=== PATIENT | female | born 1950 | race Caucasian/White ===

== ENCOUNTER → 2017-10-05 16:33 | Outpatient (CLI) | payer MEDICARE, OTHER, SELFPAY ==
[2017-10-05 16:38] LABS: RBC Urine None Seen (0-5/HPF)
[2017-10-05 16:51] LABS: Appearance Urine UA SL CLOUDY; Bilirubin Urine UA NEGATIVE (NEGATIVE); Color Urine UA YELLOW; Glucose Urine UA NEGATIVE (Normal); Ketones Urine UA NEGATIVE (NEGATIVE); Leukocyte Esterase Urine UA 2+ (NEGATIVE); Nitrite Urine UA Negative (Negative); Occult Blood Urine UA TRACE-LYSED (Negative); Protein Urine UA NEGATIVE (Negative); Specific Gravity Urine UA <=1.005 (1.000-1.035); Urobilinogen Urine UA 0.2 E.U./dL (0.2); pH Urine UA 6.5 (4.5-8.0)
[2017-10-05 16:58] LABS: Bacteria Urine Few (2-10); Culture Indicated Urine Specimen Cultured; WBC Urine 30-100/HPF (0-5/HPF)
== END ==
PROVIDERS: Family Provider Family Medicine; PCP Family Medicine; Visit Provider Family Medicine
DX: R30.0 Dysuria (principal); R50.9 Fever, unspecified
CPT/HCPCS: 81001; 87077; 87086; 87186

== ENCOUNTER → 2017-12-10 11:48 | Outpatient (CLI) | payer MEDICARE, OTHER, SELFPAY ==
--- NOTE | 2017-12-10 | DI.MG.S_ITS ---
BILATERAL DIGITAL SCREENING MAMMOGRAM 3D/2D WITH CAD: 12/10/2017 Comparison is made to exams dated: 06/04/2016 mammogram, 06/04/2015 mammogram, 05/24/2014 mammogram, 04/12/2012 mammogram, 04/10/2011 mammogram, and 04/05/2010 mammogram - [facility]. The tissue of both breasts is heterogeneously dense. This may lower the sensitivity of mammography. Current study was also evaluated with a Computer Aided Detection (CAD) system. There is architectural distortion in the left breast at 1 o'clock posterior depth. No other significant masses, calcifications, or other findings are seen in either breast. IMPRESSION: INCOMPLETE: NEEDS ADDITIONAL IMAGING EVALUATION The architectural distortion in the left breast is indeterminate. Additional views with possible ultrasound are recommended. This exam was interpreted at Station ID: [id number]. NOTE: For mammograms, a report in lay terms will be sent to the patient. Approximately 15% of breast malignancies will not be visualized mammographically. In the management of a palpable breast mass, a negative mammogram must not discourage biopsy of a clinically suspicious lesion. Electronically Signed By: Elinor seaman/chalino:12/10/2017 13:01:17 letter sent: Additional Imaging Needed ACR BI-RADS Category 0: Incomplete 3340F
== END ==
PROVIDERS: Family Provider Family Medicine; PCP Family Medicine; Visit Provider Family Medicine
DX: Z12.31 Encounter for screening mammogram for malignant neoplasm of breast (principal)
CPT/HCPCS: 77063; 77067

== ENCOUNTER → 2018-01-05 13:48 | Outpatient (CLI) | payer MEDICARE, OTHER, SELFPAY ==
--- NOTE | 2018-01-05 13:50 | DI.US.S_ITS ---
LIMITED ULTRASOUND OF LEFT BREAST: 01/05/2018 CLINICAL: Patient returns today to evaluate a density in the left breast. Comparison is made to exams dated: 01/05/2018 mammogram, 12/10/2017 mammogram, 06/04/2016 mammogram, and 06/04/2015 mammogram - [facility]. Real-time ultrasound of the left breast upper outer quadrant was performed on the area of interest. IMPRESSION: NEGATIVE There is no sonographic evidence of malignancy. There is no abnormality seen in the left breast to correspond with the mammography finding. A 1 year screening mammogram is recommended. This exam was interpreted at Station ID: [id number]. Electronically Signed By: Anshul stephenson/chalino:01/05/2018 14:55:27 letter sent: Normal Exam Ultrasound BI-RADS: 1 Negative
--- NOTE | 2018-01-05 13:50 | DI.MG.S_ITS ---
UNILATERAL LEFT DIGITAL DIAGNOSTIC MAMMOGRAM 3D/2D WITH ADDITIONAL VIEWS: 01/05/2018 Comparison is made to exams dated: 12/10/2017 mammogram, 06/04/2016 mammogram, and 06/04/2015 mammogram - [facility]. The tissue of left breast is heterogeneously dense. This may lower the sensitivity of mammography. There is irregular equal density architectural distortion with an indistinct margin in the left breast at 2 o'clock posterior depth. This is less prominent. No other significant masses or calcifications are seen in the breast. IMPRESSION: INCOMPLETE: NEEDS ADDITIONAL IMAGING EVALUATION The irregular equal density architectural distortion in the left breast is indeterminate. An ultrasound is recommended. This exam was interpreted at Station ID: [id number]. NOTE: For mammograms, a report in lay terms will be sent to the patient. Approximately 15% of breast malignancies will not be visualized mammographically. In the management of a palpable breast mass, a negative mammogram must not discourage biopsy of a clinically suspicious lesion. Electronically Signed By: Anshul stephenson/chalino:01/05/2018 14:54:43 letter sent: Need Ultrasound ACR BI-RADS Category 0: Incomplete [id number]
== END ==
PROVIDERS: PCP Family Medicine; Visit Provider Family Medicine
DX: R92.8 Other abnormal and inconclusive findings on diagnostic imaging of breast (principal)
CPT/HCPCS: 76642; 77065; G0279

== ENCOUNTER → 2018-01-29 09:47 | Outpatient (CLI) | payer MEDICARE, OTHER, SELFPAY ==
[2018-01-29 11:15] LABS: Add Manual Diff / Slide Review NO; Basophils Percent Auto 0.9 % (0-2); Eosinophils Percent Auto 2.2 % (2-4); Hematocrit 41.7 % (36-46); Hemoglobin 14.1 g/dL (12.0-16.0); Lymphocytes Percent Auto 23.6 % (25-40); Mean Corpuscular HGB Conc 33.7 % (30-36); Mean Corpuscular Volume 97.8 fL (80-100); Monocytes Percent Auto 6.6 % (3-14); Neutrophils Absolute Auto 3900 /uL (1500-7000); Neutrophils Percent Auto 66.7 % (50-75); Platelet Count 274 X10^3/uL (150-400); Red Blood Cell Count 4.27 X10^6/uL (4.0-5.2); Red Cell Distribution Width 12.7 % (11.6-14.8); White Blood Cell Count 5.9 X10^3/uL (4.5-11.0)
[2018-01-29 11:57] LABS: Alanine Aminotransferase 35 IU/L (9-52); Albumin 5.1 g/dL (3.5-5.0); Albumin Globulin Ratio 1.5 (1.0-2.8); Alkaline Phosphatase 107 U/L (38-126); Aspartate Aminotransferase 28 IU/L (14-36); BUN Creatinine Ratio 21.3 (6-22); Bilirubin Total 0.6 mg/dL (0.2-1.3); Blood Urea Nitrogen 17 mg/dL (7-17); Calcium 10.2 mg/dL (8.4-10.2); Carbon Dioxide 29 mmol/L (22-32); Chloride 103 mmol/L (98-107); Cholesterol 225 mg/dL (140-199); Estimated Glomerular Filt Rate > 60.0 mL/min (>60); Globulin 3.5 g/dL (1.7-4.1); Glucose 105 mg/dL (80-110); HDL Cholesterol 56 mg/dL (40-60); HEMOLYSIS < 15 (0-50); LDL Cholesterol Calculated 135 mg/dL (<100); Potassium 4.7 mmol/L (3.4-5.1); Sodium 144 mmol/L (137-145); Total Protein 8.6 g/dL (6.3-8.2); Triglycerides 168 mg/dL (35-150)
[2018-01-29 12:27] LABS: Thyroid Stimulating Hormone 1.48 uIU/mL (0.47-4.68)
== END ==
PROVIDERS: PCP Family Medicine; Visit Provider Family Medicine
DX: E03.9 Hypothyroidism, unspecified (principal); E78.2 Mixed hyperlipidemia; I10 Essential (primary) hypertension; R94.5 Abnormal results of liver function studies
CPT/HCPCS: 36415; 80053; 80061; 84443; 85025

== ENCOUNTER → 2019-01-13 12:21 | Outpatient (CLI) | payer MEDICARE, OTHER, SELFPAY | PROVIDERS: PCP Family Medicine; Visit Provider Family Medicine | DX: Z78.0 Asymptomatic menopausal state (principal); E07.9 Disorder of thyroid, unspecified | CPT/HCPCS: 77080 ==

== ENCOUNTER → 2019-03-02 10:46 | Outpatient (CLI) | payer MEDICARE, OTHER, SELFPAY ==
[2019-03-02 12:01] LABS: Add Manual Diff / Slide Review NO; Basophils Absolute Auto 100 /uL (0-100); Basophils Percent Auto 1.4 % (0-2); Eosinophils Absolute Auto 300 /uL (0-450); Hematocrit 39.7 % (36-46); Hemoglobin 13.9 g/dL (12.0-16.0); Lymphocytes Absolute Auto 1500 /uL (1100-4500); Lymphocytes Percent Auto 21.9 % (25-40); Mean Corpuscular Hemoglobin 33.7 PG (26-34); Mean Corpuscular Volume 96.4 fL (80-100); Monocytes Absolute Auto 500 /uL (0-900); Monocytes Percent Auto 6.6 % (3-14); Neutrophils Absolute Auto 4500 /uL (1500-7000); Neutrophils Percent Auto 66.1 % (50-75); Platelet Count 268 X10^3/uL (150-400); Red Blood Cell Count 4.12 X10^6/uL (4.0-5.2); Red Cell Distribution Width 12.5 % (11.6-14.8); White Blood Cell Count 6.8 X10^3/uL (4.5-11.0)
[2019-03-02 12:26] LABS: Alanine Aminotransferase 24 IU/L (<35); Albumin Globulin Ratio 1.6 (1.0-2.8); Alkaline Phosphatase 118 U/L (38-126); Aspartate Aminotransferase 25 IU/L (14-36); BUN Creatinine Ratio 17.5 (6-22); Bilirubin Total 0.5 mg/dL (0.2-1.3); Blood Urea Nitrogen 14 mg/dL (7-17); Calcium 10.4 mg/dL (8.4-10.2); Carbon Dioxide 30 mmol/L (22-32); Chloride 103 mmol/L (98-107); Cholesterol 226 mg/dL (140-199); Estimated Glomerular Filt Rate > 60.0 mL/min (>60); Globulin 3.1 g/dL (1.7-4.1); Glucose 100 mg/dL (80-110); HDL Cholesterol 55 mg/dL (40-60); HEMOLYSIS < 15 (0-50); LDL Cholesterol Calculated 114 mg/dL (<100); Potassium 5.2 mmol/L (3.4-5.1); Sodium 141 mmol/L (137-145); Total Protein 8.1 g/dL (6.3-8.2); Triglycerides 285 mg/dL (35-150)
[2019-03-02 12:41] LABS: Thyroid Stimulating Hormone 1.69 uIU/mL (0.47-4.68)
== END ==
PROVIDERS: PCP Family Medicine; Visit Provider Family Medicine
DX: E03.9 Hypothyroidism, unspecified (principal); E78.2 Mixed hyperlipidemia; I10 Essential (primary) hypertension; R94.5 Abnormal results of liver function studies
CPT/HCPCS: 36415; 80053; 80061; 84443; 85025

== ENCOUNTER → 2019-09-07 11:46 | Outpatient (CLI) | payer MEDICARE, OTHER, SELFPAY ==
--- NOTE | 2019-09-07 11:50 | DI.MG.S_ITS ---
BILATERAL DIGITAL SCREENING MAMMOGRAM 3D/2D WITH CAD: 09/07/2019 CLINICAL: Routine screening. Comparison is made to exams dated: 01/05/2018 mammogram, 12/10/2017 mammogram, and 06/04/2016 mammogram - [facility]. The tissue of both breasts is heterogeneously dense. This may lower the sensitivity of mammography. Current study was also evaluated with a Computer Aided Detection (CAD) system. No significant masses, calcifications, or other findings are seen in either breast. There has been no significant interval change. IMPRESSION: NEGATIVE There is no mammographic evidence of malignancy. A 1 year screening mammogram is recommended. This exam was interpreted at Station ID: [id number]. NOTE: For mammograms, a report in lay terms will be sent to the patient. Approximately 15% of breast malignancies will not be visualized mammographically. In the management of a palpable breast mass, a negative mammogram must not discourage biopsy of a clinically suspicious lesion. Electronically Signed By: Elinor seaman/chalino:09/07/2019 13:53:31 letter sent: Normal Exam ACR BI-RADS Category 1: Negative [id number]
== END ==
PROVIDERS: PCP Family Medicine; Referring Provider Family Medicine; Visit Provider Family Medicine
DX: Z12.31 Encounter for screening mammogram for malignant neoplasm of breast (principal)
CPT/HCPCS: 77063; 77067

== ENCOUNTER → 2019-10-14 14:59 | Outpatient (CLI) | payer MEDICARE, OTHER, SELFPAY ==
[2019-10-18 15:36] LABS: Fecal Immunochemical Test Positive (Negative)
== END ==
PROVIDERS: PCP Family Medicine; Referring Provider Family Medicine; Visit Provider Family Medicine
DX: Z12.11 Encounter for screening for malignant neoplasm of colon (principal)
CPT/HCPCS: 82274

== ENCOUNTER → 2019-11-22 08:48 | Outpatient (CLI) | payer MEDICARE, OTHER, SELFPAY ==
[2019-11-23 00:51] LABS: COVID19 Sendout Not Detected (Not Detect)
== END ==
PROVIDERS: PCP Family Medicine; Visit Provider Physician Assistant
DX: Z01.812 Encounter for preprocedural laboratory examination (principal)
CPT/HCPCS: 87635

== ENCOUNTER 2019-11-25 08:31 | Day surgery (SDC) | payer MEDICARE, OTHER, SELFPAY ==
[2019-11-25] MEDS: SODIUM CHLORIDE 0.9% 1,000 ML 200 ML IV (08:59)
[2019-11-25 09:00] VITALS: BP 119/72; PULSE 69; RESP 18; TEMP 36.5; O2SAT 97; BMI 31.4
--- NOTE | 2019-11-25 10:36 | PM.PREOP ---
Pre-operative Note COVID-19 COVID-19 status: Negative Result date/Date tested (Pos, Neg/Pending): 11/22/19 Interval Note History & Physical reviewed/Exam performed by Physician: Yes Changes to H&P: No ASA Class (for procedural sedation): II
--- NOTE | 2019-11-25 10:37 | P.OP.ENDO_ITS ---
Operative Date/Time/Diagnoses Date of procedure: 11/25/19 Time of procedure: 10:37 Pre-op diagnosis: Positive cologuard test Post-op diagnosis: other (No polyps or neoplasms seen.) Procedure & Clinicians Study performed: Colonoscopy Procedural sedation performed by the endoscopy Same procedure as scheduled: Yes Indications: Positive cologuard test Surgeon: Janie Richmond Procedure Notes SCOAP/Timeout: Performed Procedure in detail: The patient was brought to the room and placed in left lateral decubitus position with all bony prominences padded. A time-out was performed and then the patient was given procedural sedation starting with 2 mg of Versed and 100 mcg of fentanyl. Vitals were monitored throughout the procedure and remained stable. Once adequately sedated, the procedure was begun. A rectal exam was performed revealing no abnormalities. The colonoscope was then introduced to the rectum and advanced to the cecum in the usual fashion. The cecum was identified by the appendiceal orifice, the mucosal tri- fold, and the ileocecal valve. The scope was then retracted while rotating side to side and examining each mucosal fold. No polyps or masses were seen. A few small scattered diverticula was seen in the sigmoid colon. At the conclusion of the procedure retroflexion was performed and small grade 1-2 internal hemorrhoids without stigmata of bleeding were seen. The scope was then withdrawn from the rectum the procedure was concluded. The patient tolerated the procedure well and was transferred to the PACU in stable condition. Scope withdrawal time: 10 Sedation minutes: 18 Findings: other findings (No neoplastic lesions, few small scattered diverticula.) Specimen(s): none sent Complications: none Impression: No polyps masses. A few small diverticula were seen scattered throughout the sigmoid colon. Post-procedure Recommendations: Colonscopy in 10 years (If you are healthy enough for colonoscopy at that time) Follow up: as needed Disposition: PACU
[2019-11-25] MEDS: MIDAZOLAM 5 MG/5 ML VIAL IV (10:38)
[2019-11-25] MEDS: fentaNYL 250 MCG/5 ML INJ IV (10:38)
[2019-11-25 11:01] VITALS: BP 120/67; PULSE 71; RESP 11; TEMP 36.6; O2SAT 95
[2019-11-25 11:05] VITALS: PULSE 69; RESP 10; O2SAT 95
[2019-11-25 11:11] VITALS: BP 116/63; PULSE 71; RESP 10; TEMP 36.6; O2SAT 97
[2019-11-25 11:15] VITALS: BP 120/63; PULSE 73; RESP 16; O2SAT 97
== END 2019-11-25 11:30 | disposition home or self-care (01) ==
PROVIDERS: PCP Family Medicine; Referring Provider Family Medicine; Visit Provider Surgery
PROC: 0DJD8ZZ Inspection of Lower Intestinal Tract, Via Natural or Artificial Opening Endoscopic (ICD-10-PCS; CPT 45378; principal; 2019-11-25 08:30)
DX: R19.5 Other fecal abnormalities (principal); E66.9 Obesity, unspecified; Z68.31 Body mass index [BMI] 31.0-31.9, adult; E03.9 Hypothyroidism, unspecified; E78.5 Hyperlipidemia, unspecified; F32.9 Major depressive disorder, single episode, unspecified; F41.9 Anxiety disorder, unspecified; K64.0 First degree hemorrhoids
CPT/HCPCS: 45378; 99152; J2250; J3010

== ENCOUNTER → 2020-03-12 08:25 | Outpatient (CLI) | payer MEDICARE, OTHER, SELFPAY ==
[2020-03-12 09:07] LABS: Alanine Aminotransferase 21 IU/L (<35); Albumin 4.6 g/dL (3.5-5.0); Albumin Globulin Ratio 1.5 (1.0-2.8); Alkaline Phosphatase 102 U/L (38-126); Aspartate Aminotransferase 24 IU/L (14-36); BUN Creatinine Ratio 21.1 (6-22); Bilirubin Total 0.3 mg/dL (0.2-1.3); Blood Urea Nitrogen 16 mg/dL (7-17); Calcium 9.4 mg/dL (8.4-10.2); Carbon Dioxide 32 mmol/L (22-32); Chloride 104 mmol/L (98-107); Cholesterol 211 mg/dL (140-199); Estimated Glomerular Filt Rate > 60.0 mL/min (>60); Globulin 3.1 g/dL (1.7-4.1); Glucose 119 mg/dL (80-110); HDL Cholesterol 60 mg/dL (40-60); HEMOLYSIS < 15 (0-50); LDL Cholesterol Calculated 125 mg/dL (<100); Potassium 4.8 mmol/L (3.4-5.1); Sodium 139 mmol/L (137-145); Total Protein 7.7 g/dL (6.3-8.2); Triglycerides 128 mg/dL (35-150)
[2020-03-12 10:04] LABS: Thyroid Stimulating Hormone 2.34 uIU/mL (0.47-4.68)
== END ==
PROVIDERS: PCP Nurse Practitioner; Referring Provider Nurse Practitioner; Visit Provider Nurse Practitioner
DX: E03.9 Hypothyroidism, unspecified (principal); E78.2 Mixed hyperlipidemia; F32.9 Major depressive disorder, single episode, unspecified; I10 Essential (primary) hypertension; R94.5 Abnormal results of liver function studies; Z79.899 Other long term (current) drug therapy
CPT/HCPCS: 36415; 80053; 80061; 84443

== ENCOUNTER 2020-04-06 11:15 | Outpatient (RCR) | payer MEDICARE, OTHER, SELFPAY ==
--- NOTE | 2020-03-01 15:47 | PT.OIE ---
Current Diagnoses Stiffness of right hip, not elsewhere classified (03/01/20) Stiffness of left hip, not elsewhere classified (03/01/20) Low back pain (03/01/20) Muscle weakness (generalized) (03/01/20) Stress incontinence (female) (male) (03/01/20) Frequency of micturition (03/01/20) Past Medical History (Last Reviewed 01/19/20 @ 13:43 by JANIS Garibay) Chicken pox (~1955) History of urinary incontinence Hyperlipidemia Hypertension Hypothyroidism (~1979) Measles (~1956) Skin cancer (~2003) Past Surgical History (Last Reviewed 01/19/20 @ 13:43 by JANIS Garibay) Anesthesia History of skin surgery (~2007) History of surgery (~1985) History of surgery (~2006) Status post laparoscopy (~06/2006) Status post sclerotherapy of varicose veins (~2009) Visit Care Team Role Provider Type JANIS Garibay Attending Provider Advanced Loan Review Officer Primary Care Provider Referring Provider Specialty: Family Practice Address: [address] [place] [address], [facility] Email: [email or web address] Physical Therapy Initial Evaluation PT-OP-A Visit Information Start: 02/27/20 18:37 Freq: Status: Active Protocol: Document 03/01/20 10:38 LRN (Rec: 03/01/20 11:50 LRN [id number]) Out-Patient Physical Therapy Visit Information Visit Information Visit Type Initial Evaluation Visit Start Time 10:38 Visit Stop Time 11:23 Total Visit Minutes 45 Visit Number 1 Evaluation Information Evaluation Date 03/01/20 Precautions Precautions Pt reported PF sores that are thickening. Visible sore on left external labia majora. PT-OP-B Current Condition Start: 02/27/20 18:37 Freq: Status: Active Protocol: Document 03/01/20 10:38 LRN (Rec: 03/01/20 11:50 LRN [id number]) Current Condition History of Current Condition Onset Date 40 years, but new physician 3 weeks ago. Current Complaints Urinary incontinence, History of Current Condition Pt has longstanding history of urinary incontinence and UTI' s. She has had treatments for both and is currently using medications to control her urinary frequency and leakage with a strong urges. She states she recently told her new primary care physician that she was open to suggestions for treatments with hopes of getting off her medications. States on the intake form all the questions regarding frequency and urgency are now no, but used to be yes. She reports she drinks a lot of coffee, but has cut back to 1/2 decaf coffee. She reports being on medications for her urinary incontinence for past 8 yrs. Prior Treatments and Tests 40 yrs ago, treatment for UTI' s - reamed out urethra and helped mostly the problems with the UTI's. States was painful. Currently she denies pain. She reports a bladder study done with Dr. Chester but results unknown, records unavailabe. Medicine for urgency and frequency of urination for past 8 years that helped with incontinence. Developmental History Developmental History 10 years ago was referred for biofeedback, but felt to weird , so did not do the therapy. Takes stool softeners daily. Treatment Goals Patient/Caregiver Goals Pt goal is to get off the medication, and stop urinary leakage when stressed. Prior Functional Status Baseline Function- ADL's Independent Baseline Function- Mobility Independent Baseline Function- Other Urinary leakage with feeling of urgency extremely frequent (urge 5 minutes after voiding) , and with activities. Current Functional Impairments (Reported) Functional Limitations- ADL's Urinary leakage when running or doing something physical or straining has a little leakage. 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 Personal Factors Other Personal Factors That May Effect Back & neck pain from over use Therapy/Recovery , initial injury was a back pain onset from pushing open an overhead door on a boat with R arm - in age 49's. Thyroid disorder - hypothyroidism since age 29. History of three vaginal births. PT-OP-C Subjective Start: 02/27/20 18:37 Freq: Status: Active Protocol: Document 03/01/20 10:38 LRN (Rec: 03/01/20 11:50 LRN [id number]) OP-PT Subjective Patient Comments Patient Comments Preventing leakage with medications currently. Reports chronic sores on labia that itches; therefore uses a cream every now and then, but has been worsening. Patient Questionnaires Pelvic Pain and Urgency/Frequency Patient Symptom Scale Pelvic Pain Score 7 PT-OP-I Pelvic Floor Start: 02/27/20 18:37 Freq: Status: Active Protocol: Document 03/01/20 10:38 LRN (Rec: 03/01/20 11:50 LRN [id number]) Pelvic Floor Assessment Urine Pelvic Floor Surgery No Other Urinary Symptoms Urinary leakage with a stress. Leakage Size Small Bowel Bowel Surgery No [place] Stool Chart Type 1-7 4 [place] Stool Chart Comments Pt takes stool softner daily Pelvic Clock Pelvic Clock 12-3 Tightness Pelvic Clock 3-6 Tightness Pelvic Clock 6-9 Tightness Pelvic Clock 9-12 Tightness Perineal Descent Resting Absent Bearing Absent Contraction Ability Voluntary Contraction Absent Manual Muscle Testing Left 0 Manual Muscle Testing Right 0 Manual Muscle Testing Anterior 0 Manual Muscle Testing Posterior 0 Muscle Endurance (Seconds) 0 Number of Quick Contractions In 10 0 Seconds Comments Pelvic Floor Comments Pt performs PF contraction while bridging and elaine her core/hip/gluteal substitute muscles. One small area of redness on the L external labia majora. PT-OP-J Posture/Palpation/Skin Start: 02/27/20 18:37 Freq: Status: Active Protocol: Document 03/01/20 10:38 LRN (Rec: 03/01/20 11:50 LRN [id number]) Posture Evaluation Position Standing Evaluation View All positions L-Spine Posture Increased Lordosis Shoulder Posture (L) Elevated Pelvis Posture Anteriorly Tilted,(R) Iliac Crest Superior Knee Posture (L) Genu Varus,(R) Genu Varus Comments Posture Comments Mild C-curve of the spine, apex on left. PT-OP-K Range of Motion Start: 02/27/20 18:37 Freq: Status: Active Protocol: Document 03/01/20 10:38 LRN (Rec: 03/01/20 11:50 LRN [id number]) Lumbar Spine Range of Motion Lumbar Spine Active Degrees Testing Position Standing Flexion 70 Extension 30 Comments Goniometer reading Hip Goniometric Range of Motion Hip Right Passive Testing Position Supine External Rotation 25 Left Passive Testing Position Supine Internal Rotation 25 PT-OP-M Strength Start: 02/27/20 18:37 Freq: Status: Active Protocol: Document 03/01/20 10:38 LRN (Rec: 03/01/20 11:50 LRN [id number]) Trunk Strength Trunk Manual Muscle Testing Testing Position Supine Core Stabilization Loss of stability with LLE MMT Hip Strength Hip Manual Muscle Testing Right Flexion (L2) 5 Normal Extension (S1) 5 Normal Abduction 5 Normal Adduction 5 Normal External Rotation 4 Good Internal Rotation 5 Normal Left Flexion (L2) 5 Normal Extension (S1) 5 Normal Abduction 5 Normal Adduction 3 Fair External Rotation 3+ Fair+ Internal Rotation 5 Normal PT-OP-Q Treatments Start: 02/27/20 18:37 Freq: Status: Active Protocol: Document 03/01/20 10:38 LRN (Rec: 03/01/20 11:50 LRN [id number]) Therapeutic Exercises Supine Exercises Isolation of PF training Supine Exercise Name PF isolation training Comments Self awareness training w/pt ( pt hands abdomen & gluteals) Deep Breathing Supine Exercise Name Deep Breathing Comments Pt able to perform properly. Self-Care/Home Management Treatment Education Patient Education Home Exercise Program Other Education Discussed goals and results of evaluation. Education: Pt educated in use of Bladder Diary and I/S in tracking for 1 week. Discussed use of 2 different diaries for tracking of bladder. Activities Self-Care/Home Management Activities Pt I/S in HEP: PF contraction in isolation of gluteals, rectus abdominus and hip adductors. PT-OP-T Assessment and Plan Start: 02/27/20 18:37 Freq: Status: Active Protocol: Document 03/01/20 10:38 LRN (Rec: 03/01/20 11:50 LRN [id number]) Physical Therapy Assessment Rehab Potential Rehabilitation Potential Good Evaluation Complexity Number of Personal Factors/Comorbidities 1-2 Number of Body Systems Impaired 4 or More Clinical Presentation at Evaluation Stable Impairments Impairments Posture,ROM,Sensation,Soft Tissue Mobility,Strength Goals Six Impairment Substitution of abdominal and gluteal ms to perform a PF contraction. Short Term Goal (STG) Pt will be able to perform a PF contraction in the absence of abdominal/gluteal muscles/ hip AD's. STG Duration 04/27/20 Museum Curator Goal (LTG) Pt will be aware of the sensation of a proper PF contraction. LTG Duration 05/30/20 Five Impairment Decreased hip strength/ stability Short Term Goal (STG) Improve hip mobility STG Duration 04/27/20 Museum Curator Goal (LTG) Pt will be able to squat without urinary leakage. LTG Duration 05/30/20 Four Impairment Decreased PF/core stability Short Term Goal (STG) Improve posture (reduce lordosis). STG Duration 04/27/20 Museum Curator Goal (LTG) Pt will be able to demonstrate PF/core stability with resistance to her LE's without leakage. LTG Duration 05/30/20 Three Impairment Decreased PF endurance (Long Hold endurance is 0 secs) Short Term Goal (STG) Improve PF strength per Long Hold to 5 sec's and Quick Flicks 5 reps prior to fatigue to eliminate urinary incontinence with fast walking . STG Duration 04/27/20 Mcfp Goal (LTG) Improve PF strength per Long Hold to 10 sec's and Quick Flicks 10 reps prior to fatigue with pt be able to decrease use of her urinary incontinence medication. LTG Duration 05/30/20 Two Impairment Decreased PF strength (Quick Flicks & Long hold strength 0/ 5) Short Term Goal (STG) Improve PF strength of Quick Flicks and Long holds to at least 3/5 in posterior wall and 2/5 in lateral mitchell, and pt awareness of anterior PF contraction. STG Duration 04/27/20 Museum Curator Goal (LTG) Eliminate urinary leakage when straining with physical stress. LTG Duration 05/30/20 One Impairment Pt lacks an independent self care HEP. Short Term Goal (STG) Pt educated in progressive program for PF strengthening for being able to run a few steps without Urinary leakage. STG Duration 04/06/20 Museum Curator Goal (LTG) Pt will be independent in a self care HEP for PF strengthening. LTG Duration 05/30/20 Assessment Summary Assessment Pt presents with symptoms of stress urinary incontinence. She presents with poor tissue health of her PF and external tissues and she notes sores in her pelvic floor that she reports are thickening. With sores in her PF, I will be unable to use biofeedback with an internal vaginal electrode , limiting training of a proper PF contraction to verbal and digital physical cuing. Further medical investigation as to the cause of her sores would be beneficial to progressing the pt in PF awareness and strength training. She demonstrates extreme substitution of of her abdominal, gluteal and hip adductor muscles in performing a PF contraction. Per internal assessment the pt has no palpable PF contraction of the quick or long hold muscles. It is expected that her rehabilitation time will be extended due to the chronic nature of her urinary leakage and chronic use of medication for her urge incontinence, which is expected to hinder her progress. The pt will benefit from skilled physical therapy to for education in proper PF care, possibly dietary changes, improved PF strength, improved core & hip stability/strength/mobility and posture/body mechanics training. Physical Therapy Plan Frequency and Duration Frequency of Treatment 1x/Week Plan of Care Start Date 03/01/20 Plan of Care End Date 05/30/20 Therapeutic Interventions Therapeutic Interventions Coordination Training,Home Exercise Program,Joint Mobilizations,Manual Therapy, Neuromuscular Re-education, Patient/Caregiver Education, Self-Care/Home Management,Soft Tissue Mobilization, Therapeutic Activities, Therapeutic Exercises Modalities Biofeedback Other Referrals/Consults Referrals/Consults Recommended Physician assessment for itching and pt reported sores of the pelvic floor. Estrogen cream to improve the health of the pelvic floor. Next Visit Focus/Plan Next Note Type Treatment Note Next Visit Plan Review Bladder Diary, assess hip mobility, posture training (reduce lordosis), transfer training for proper transfer techniques to improve use of hips, review of isolation of PF contraction, PF strengthening, pt education in PF contraction using self physical feedback of visual inspection and use of hand on PF, progress coordination training of PF contraction. HEP: Hip ROM, PF relaxation training, core strengthening, L hip strengthening. Manual therapy to improve PF mobility . NOTE: Pt notes sores in PF , small visible abrasion on L external labia majora.
--- NOTE | 2020-03-01 17:04 | PT-OP ANOTE ---
Per teleconversation, pt thought she was done with therapy and thinks she is good. States she has a home program and has been doing exercises and feels her symptoms have lessened and she doesn't need further therapy. States she will seek therapy if needed int he future. Pt is agreeable with discharge from physical therapy.
--- NOTE | 2020-03-08 16:38 | PT.OTN ---
Current Diagnoses Stiffness of right hip, not elsewhere classified (03/08/20) Stiffness of left hip, not elsewhere classified (03/08/20) Low back pain (03/08/20) Muscle weakness (generalized) (03/08/20) Stress incontinence (female) (male) (03/08/20) Frequency of micturition (03/08/20) Physical Therapy Treatment Note PT-OP-A Visit Information Start: 02/27/20 18:37 Freq: Status: Active Protocol: Document 03/08/20 10:37 LRN (Rec: 03/08/20 11:19 LRN [id number]) Out-Patient Physical Therapy Visit Information Visit Information Visit Type Treatment Note Visit Start Time 10:37 Visit Stop Time 11:19 Total Visit Minutes 42 Visit Number 2 Evaluation Information Evaluation Date 03/01/20 Precautions Precautions Pt reported PF sores that are thickening. Visible sore on left external labia majora. PT-OP-B Current Condition Start: 02/27/20 18:37 Freq: Status: Active Protocol: Document 03/01/20 10:38 LRN (Rec: 03/01/20 11:50 LRN [id number]) Current Condition History of Current Condition Onset Date 40 years, but new physician 3 weeks ago. Current Complaints Urinary incontinence, History of Current Condition Pt has longstanding history of urinary incontinence and UTI' s. She has had treatments for both and is currently using medications to control her urinary frequency and leakage with a strong urges. She states she recently told her new primary care physician that she was open to suggestions for treatments with hopes of getting off her medications. States on the intake form all the questions regarding frequency and urgency are now no, but used to be yes. She reports she drinks a lot of coffee, but has cut back to 1/2 decaf coffee. She reports being on medications for her urinary incontinence for past 8 yrs. Prior Treatments and Tests 40 yrs ago, treatment for UTI' s - reamed out urethra and helped mostly the problems with the UTI's. States was painful. Currently she denies pain. She reports a bladder study done with Dr. Chester but results unknown, records unavailabe. Medicine for urgency and frequency of urination for past 8 years that helped with incontinence. Developmental History Developmental History 10 years ago was referred for biofeedback, but felt to weird , so did not do the therapy. Takes stool softeners daily. Treatment Goals Patient/Caregiver Goals Pt goal is to get off the medication, and stop urinary leakage when stressed. Prior Functional Status Baseline Function- ADL's Independent Baseline Function- Mobility Independent Baseline Function- Other Urinary leakage with feeling of urgency extremely frequent (urge 5 minutes after voiding) , and with activities. Current Functional Impairments (Reported) Functional Limitations- ADL's Urinary leakage when running or doing something physical or straining has a little leakage. 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 Personal Factors Other Personal Factors That May Effect Back & neck pain from over use Therapy/Recovery , initial injury was a back pain onset from pushing open an overhead door on a boat with R arm - in age 49's. Thyroid disorder - hypothyroidism since age 29. History of three vaginal births. PT-OP-C Subjective Start: 02/27/20 18:37 Freq: Status: Active Protocol: Document 03/08/20 10:37 LRN (Rec: 03/08/20 11:19 LRN [id number]) OP-PT Subjective Patient Comments Patient Comments States she did not do well on filling out the bladder diary and did not bring the handouts . States she thought after last session that there was poor prognosis of outcome for her condition. PT-OP-I Pelvic Floor Start: 02/27/20 18:37 Freq: Status: Active Protocol: Document 03/01/20 10:38 LRN (Rec: 03/01/20 11:50 LRN [id number]) Pelvic Floor Assessment Urine Pelvic Floor Surgery No Other Urinary Symptoms Urinary leakage with a stress. Leakage Size Small Bowel Bowel Surgery No [place] Stool Chart Type 1-7 4 [place] Stool Chart Comments Pt takes stool softner daily Pelvic Clock Pelvic Clock 12-3 Tightness Pelvic Clock 3-6 Tightness Pelvic Clock 6-9 Tightness Pelvic Clock 9-12 Tightness Perineal Descent Resting Absent Bearing Absent Contraction Ability Voluntary Contraction Absent Manual Muscle Testing Left 0 Manual Muscle Testing Right 0 Manual Muscle Testing Anterior 0 Manual Muscle Testing Posterior 0 Muscle Endurance (Seconds) 0 Number of Quick Contractions In 10 0 Seconds Comments Pelvic Floor Comments Pt performs PF contraction while bridging and elaine her core/hip/gluteal substitute muscles. One small area of redness on the L external labia majora. PT-OP-J Posture/Palpation/Skin Start: 02/27/20 18:37 Freq: Status: Active Protocol: Document 03/01/20 10:38 LRN (Rec: 03/01/20 11:50 LRN [id number]) Posture Evaluation Position Standing Evaluation View All positions L-Spine Posture Increased Lordosis Shoulder Posture (L) Elevated Pelvis Posture Anteriorly Tilted,(R) Iliac Crest Superior Knee Posture (L) Genu Varus,(R) Genu Varus Comments Posture Comments Mild C-curve of the spine, apex on left. PT-OP-K Range of Motion Start: 02/27/20 18:37 Freq: Status: Active Protocol: Document 03/01/20 10:38 LRN (Rec: 03/01/20 11:50 LRN [id number]) Lumbar Spine Range of Motion Lumbar Spine Active Degrees Testing Position Standing Flexion 70 Extension 30 Comments Goniometer reading Hip Goniometric Range of Motion Hip Right Passive Testing Position Supine External Rotation 25 Left Passive Testing Position Supine Internal Rotation 25 PT-OP-M Strength Start: 02/27/20 18:37 Freq: Status: Active Protocol: Document 03/01/20 10:38 LRN (Rec: 03/01/20 11:50 LRN [id number]) Trunk Strength Trunk Manual Muscle Testing Testing Position Supine Core Stabilization Loss of stability with LLE MMT Hip Strength Hip Manual Muscle Testing Right Flexion (L2) 5 Normal Extension (S1) 5 Normal Abduction 5 Normal Adduction 5 Normal External Rotation 4 Good Internal Rotation 5 Normal Left Flexion (L2) 5 Normal Extension (S1) 5 Normal Abduction 5 Normal Adduction 3 Fair External Rotation 3+ Fair+ Internal Rotation 5 Normal PT-OP-Q Treatments Start: 02/27/20 18:37 Freq: Status: Active Protocol: Document 03/08/20 10:37 LRN (Rec: 03/08/20 11:19 LRN [id number]) Neuro Re-Education Treatment Other Activities Pt awareness training of PF Details Pt awareness training of PF contractions Comments Use of mirror for visual feedback of performing a PF contraction. Much discussion of visual feedback to look for with PF contraction. Also did PF contraction with phys cuing of hands on gluteals and abdomen. Self-Care/Home Management Treatment Education Patient Education Home Exercise Program Other Education Discussed again, at extensive length, findings of initial evaluation (effect of use of meds on bladder vs PF) and the benefits of PF rehabilitation and expections/goal of therapy and how therapy can help patient. Activities Self-Care/Home Management Activities Review of how to complete bladder diary, addressing most headings. Issued with partial review of: Proper genital hygiene for women and general vulvar care. Issued & reviewed handout of natural cream for PF tissue health (Julva and Good Clean Love). PT-OP-T Assessment and Plan Start: 02/27/20 18:37 Freq: Status: Active Protocol: Document 03/08/20 10:37 LRN (Rec: 03/08/20 11:19 LRN [id number]) Physical Therapy Assessment Goals Six Impairment Substitution of abdominal and gluteal ms to perform a PF contraction. Short Term Goal (STG) Pt will be able to perform a PF contraction in the absence of abdominal/gluteal muscles/ hip AD's. (03/08/20: Initiated awareness training for isolation of PF) STG Duration 04/27/20 Computer Forwarding System Markup Clerk Goal (LTG) Pt will be aware of the sensation of a proper PF contraction. LTG Duration 05/30/20 Five Impairment Decreased hip strength/ stability Short Term Goal (STG) Improve hip mobility. STG Duration 04/27/20 Alf Goal (LTG) Pt will be able to squat without urinary leakage. LTG Duration 05/30/20 Four Impairment Decreased PF/core stability Short Term Goal (STG) Improve posture (reduce lordosis). STG Duration 04/27/20 Alf Goal (LTG) Pt will be able to demonstrate PF/core stability with resistance to her LE's without leakage. LTG Duration 05/30/20 Three Impairment Decreased PF endurance (Long Hold endurance is 0 secs) Short Term Goal (STG) Improve PF strength per Long Hold to 5 sec's and Quick Flicks 5 reps prior to fatigue to eliminate urinary incontinence with fast walking . STG Duration 04/27/20 Alf Goal (LTG) Improve PF strength per Long Hold to 10 sec's and Quick Flicks 10 reps prior to fatigue with pt able to decrease use of her urinary incontinence medication. LTG Duration 05/30/20 Two Impairment Decreased PF strength (Quick Flicks & Long hold strength 0/ 5) Short Term Goal (STG) Improve PF strength of Quick Flicks and Long holds to at least 3/5 in posterior wall and 2/5 in lateral mitchell, and pt awareness of anterior PF contraction. STG Duration 04/27/20 Alf Goal (LTG) Eliminate urinary leakage when straining with physical stress. LTG Duration 05/30/20 One Impairment Pt lacks an independent self care HEP. Short Term Goal (STG) Pt educated in progressive program for PF strengthening for being able to run a few steps without Urinary leakage. STG Duration 04/06/20 Computer Forwarding System Markup Clerk Goal (LTG) Pt will be independent in a self care HEP for PF strengthening. LTG Duration 05/30/20 Assessment Summary Assessment Pt concerned at the start over benefits of doing therapy. She is agreeable to therapy after discussion and education , and appears to be receptive to the rehab program outlined. She was receptive to visual feedback of identification of what a PF contraction might look like. She was receptive to receiving educational materials regarding PF care. Pt did not consistently do her bladder diary and didn't bring it in; therefore not able to review. Pt to hopefully be more compliant this coming week by completing bladder diary. Physical Therapy Plan Frequency and Duration Frequency of Treatment 1x/Week Plan of Care Start Date 03/01/20 Plan of Care End Date 05/30/20 Next Visit Focus/Plan Next Note Type Treatment Note Next Visit Plan Review Bladder Diary, assess hip mobility, review of isolation of PF contraction, PF strengthening, pt education in PF contraction using self physical feedback of visual inspection and use of hand on PF, posture training (reduce lordosis), transfer training for proper transfer techniques to improve use of hips, progress as able coordination training of PF contraction. HEP: Hip ROM, PF relaxation training, core strengthening, L hip strengthening. Manual therapy to improve PF mobility . NOTE: Pt notes sores in PF , small visible abrasion on L external labia majora. Pt to see Dr. Long 03/15/20 and will address sores.
--- NOTE | 2020-03-16 16:59 | PT.OTN ---
Current Diagnoses Stiffness of right hip, not elsewhere classified (03/16/20) Stiffness of left hip, not elsewhere classified (03/16/20) Low back pain (03/16/20) Muscle weakness (generalized) (03/16/20) Stress incontinence (female) (male) (03/16/20) Frequency of micturition (03/16/20) Physical Therapy Treatment Note PT-OP-A Visit Information Start: 02/27/20 18:37 Freq: Status: Active Protocol: Document 03/16/20 12:47 LRN (Rec: 03/16/20 13:39 LRN [id number]) Out-Patient Physical Therapy Visit Information Visit Information Visit Type Treatment Note Visit Start Time 12:47 Visit Stop Time 13:37 Total Visit Minutes 50 Visit Number 3 Evaluation Information Evaluation Date 03/01/20 Precautions Precautions Pt reported PF sores that are thickening. Visible sore on left external labia majora. PT-OP-B Current Condition Start: 02/27/20 18:37 Freq: Status: Active Protocol: Document 03/01/20 10:38 LRN (Rec: 03/01/20 11:50 LRN [id number]) Current Condition History of Current Condition Onset Date 40 years, but new physician 3 weeks ago. Current Complaints Urinary incontinence, History of Current Condition Pt has longstanding history of urinary incontinence and UTI' s. She has had treatments for both and is currently using medications to control her urinary frequency and leakage with a strong urges. She states she recently told her new primary care physician that she was open to suggestions for treatments with hopes of getting off her medications. States on the intake form all the questions regarding frequency and urgency are now no, but used to be yes. She reports she drinks a lot of coffee, but has cut back to 1/2 decaf coffee. She reports being on medications for her urinary incontinence for past 8 yrs. Prior Treatments and Tests 40 yrs ago, treatment for UTI' s - reamed out urethra and helped mostly the problems with the UTI's. States was painful. Currently she denies pain. She reports a bladder study done with Dr. Chester but results unknown, records unavailabe. Medicine for urgency and frequency of urination for past 8 years that helped with incontinence. Developmental History Developmental History 10 years ago was referred for biofeedback, but felt to weird , so did not do the therapy. Takes stool softeners daily. Treatment Goals Patient/Caregiver Goals Pt goal is to get off the medication, and stop urinary leakage when stressed. Prior Functional Status Baseline Function- ADL's Independent Baseline Function- Mobility Independent Baseline Function- Other Urinary leakage with feeling of urgency extremely frequent (urge 5 minutes after voiding) , and with activities. Current Functional Impairments (Reported) Functional Limitations- ADL's Urinary leakage when running or doing something physical or straining has a little leakage. 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 Personal Factors Other Personal Factors That May Effect Back & neck pain from over use Therapy/Recovery , initial injury was a back pain onset from pushing open an overhead door on a boat with R arm - in age 49's. Thyroid disorder - hypothyroidism since age 29. History of three vaginal births. PT-OP-C Subjective Start: 02/27/20 18:37 Freq: Status: Active Protocol: Document 03/16/20 12:47 LRN (Rec: 03/16/20 13:39 LRN [id number]) OP-PT Subjective Patient Comments Patient Comments Did some of the bladder diary. Seeing Dr. Sandra Long on and will discuss sores in PF. Has been using Pre-[place] to help urine not be as strong. PT-OP-I Pelvic Floor Start: 02/27/20 18:37 Freq: Status: Active Protocol: Document 03/01/20 10:38 LRN (Rec: 03/01/20 11:50 LRN [id number]) Pelvic Floor Assessment Urine Pelvic Floor Surgery No Other Urinary Symptoms Urinary leakage with a stress. Leakage Size Small Bowel Bowel Surgery No [place] Stool Chart Type 1-7 4 [place] Stool Chart Comments Pt takes stool softner daily Pelvic Clock Pelvic Clock 12-3 Tightness Pelvic Clock 3-6 Tightness Pelvic Clock 6-9 Tightness Pelvic Clock 9-12 Tightness Perineal Descent Resting Absent Bearing Absent Contraction Ability Voluntary Contraction Absent Manual Muscle Testing Left 0 Manual Muscle Testing Right 0 Manual Muscle Testing Anterior 0 Manual Muscle Testing Posterior 0 Muscle Endurance (Seconds) 0 Number of Quick Contractions In 10 0 Seconds Comments Pelvic Floor Comments Pt performs PF contraction while bridging and elaine her core/hip/gluteal substitute muscles. One small area of redness on the L external labia majora. PT-OP-J Posture/Palpation/Skin Start: 02/27/20 18:37 Freq: Status: Active Protocol: Document 03/01/20 10:38 LRN (Rec: 03/01/20 11:50 LRN [id number]) Posture Evaluation Position Standing Evaluation View All positions L-Spine Posture Increased Lordosis Shoulder Posture (L) Elevated Pelvis Posture Anteriorly Tilted,(R) Iliac Crest Superior Knee Posture (L) Genu Varus,(R) Genu Varus Comments Posture Comments Mild C-curve of the spine, apex on left. PT-OP-K Range of Motion Start: 02/27/20 18:37 Freq: Status: Active Protocol: Document 03/01/20 10:38 LRN (Rec: 03/01/20 11:50 LRN [id number]) Lumbar Spine Range of Motion Lumbar Spine Active Degrees Testing Position Standing Flexion 70 Extension 30 Comments Goniometer reading Hip Goniometric Range of Motion Hip Right Passive Testing Position Supine External Rotation 25 Left Passive Testing Position Supine Internal Rotation 25 PT-OP-M Strength Start: 02/27/20 18:37 Freq: Status: Active Protocol: Document 03/01/20 10:38 LRN (Rec: 03/01/20 11:50 LRN [id number]) Trunk Strength Trunk Manual Muscle Testing Testing Position Supine Core Stabilization Loss of stability with LLE MMT Hip Strength Hip Manual Muscle Testing Right Flexion (L2) 5 Normal Extension (S1) 5 Normal Abduction 5 Normal Adduction 5 Normal External Rotation 4 Good Internal Rotation 5 Normal Left Flexion (L2) 5 Normal Extension (S1) 5 Normal Abduction 5 Normal Adduction 3 Fair External Rotation 3+ Fair+ Internal Rotation 5 Normal PT-OP-Q Treatments Start: 02/27/20 18:37 Freq: Status: Active Protocol: Document 03/16/20 12:47 LRN (Rec: 03/16/20 13:39 LRN [id number]) Therapeutic Exercises Supine Exercises Long holds Supine Exercise Name ON WEDGE: PF contraction with resisted R hip AD Side right Resistance Manual Reps/Minutes 10' Comments Much v. cuing needed to keep pt from breath holding over 6 sec breaths Quick Flicks Supine Exercise Name ON WEDGE: PF contraction w/ resisted R hip AD Side right Reps/Minutes 8' Comments Extra time for training LE roll in/outs Supine Exercise Name ON WEDGE LE roll in/out w/deep breathing/PF contraction Reps/Minutes 4' Comments Verbal/phys assist needed to keep pt hip moving & keep from breath holding Deep Breathing Supine Exercise Name Deep Breathing Reps/Minutes 8' Comments Pt able to perform properly. Self-Care/Home Management Treatment Education Other Education Quick review of bladder diary due to poor tracking. Educated pt perform PF contraction before lifting, laughing light runs ( aggravator strengthening). Activities Self-Care/Home Management Activities Issued HEP: LE roll in/out w/ 6 sec breath, pillow under hips, PF contraction inhale progressing to PF contraction with inhale & exhale. PT-OP-T Assessment and Plan Start: 02/27/20 18:37 Freq: Status: Active Protocol: Document 03/16/20 12:47 LRN (Rec: 03/16/20 13:39 LRN [id number]) Physical Therapy Assessment Goals Six Impairment Substitution of abdominal and gluteal ms to perform a PF contraction. Short Term Goal (STG) Pt will be able to perform a PF contraction in the absence of abdominal/gluteal muscles/ hip AD's. (03/08/20: Initiated awareness training for isolation of PF) STG Duration 04/27/20 Senior Care Goal (LTG) Pt will be aware of the sensation of a proper PF contraction. LTG Duration 05/30/20 Five Impairment Decreased hip strength/ stability Short Term Goal (STG) Improve hip mobility. STG Duration 04/27/20 Sanitarian Aide Goal (LTG) Pt will be able to squat without urinary leakage. LTG Duration 05/30/20 Four Impairment Decreased PF/core stability Short Term Goal (STG) Improve posture (reduce lordosis). STG Duration 04/27/20 Sanitarian Aide Goal (LTG) Pt will be able to demonstrate PF/core stability with resistance to her LE's without leakage. LTG Duration 05/30/20 Three Impairment Decreased PF endurance (Long Hold endurance is 0 secs) Short Term Goal (STG) Improve PF strength per Long Hold to 5 sec's and Quick Flicks 5 reps prior to fatigue to eliminate urinary incontinence with fast walking . STG Duration 04/27/20 Senior Care Goal (LTG) Improve PF strength per Long Hold to 10 sec's and Quick Flicks 10 reps prior to fatigue with pt able to decrease use of her urinary incontinence medication. LTG Duration 05/30/20 Two Impairment Decreased PF strength (Quick Flicks & Long hold strength 0/ 5) Short Term Goal (STG) Improve PF strength of Quick Flicks and Long holds to at least 3/5 in posterior wall and 2/5 in lateral mitchell, and pt awareness of anterior PF contraction. STG Duration 04/27/20 Sanitarian Aide Goal (LTG) Eliminate urinary leakage when straining with physical stress. LTG Duration 05/30/20 One Impairment Pt lacks an independent self care HEP. Short Term Goal (STG) Pt educated in progressive program for PF strengthening for being able to run a few steps without Urinary leakage. STG Duration 04/06/20 Senior Care Goal (LTG) Pt will be independent in a self care HEP for PF strengthening. LTG Duration 05/30/20 Assessment Summary Assessment Urinary leakage with stress ( helping spouse lift objects, w /laughing/coughing & quick walk/jaunt). Per internal assessment, Superficial PF muscle contractions were palpable around the PF clock except 9 O'Clock. Anal Johnston present. Very minimal clitoral nod noted. Pt perineum red and skin appears irritated. Pt not compliant with bladder diary tracking. Physical Therapy Plan Frequency and Duration Frequency of Treatment 1x/Week Plan of Care Start Date 03/01/20 Plan of Care End Date 05/30/20 Next Visit Focus/Plan Next Note Type Treatment Note Next Visit Plan Assess response to PF strengthening vs need for PF stretching. Assess for improvement of contraction at 9 O'Clock of PF clock (and compare to 3 O'Clock). Assess hip mobility, Check for progress towards isolation of PF contraction, PF strengthening, pt education in PF contraction using self physical feedback of visual inspection and use of hand on PF, posture training (reduce lordosis), transfer training for proper transfer techniques to improve use of hips, progress as able coordination training of PF contraction. HEP: Hip ROM, PF relaxation training, core strengthening, L hip strengthening. Manual therapy to improve PF mobility . NOTE: Pt notes sores in PF , small visible abrasion on L external labia majora. Pt to see Dr. Long 03/15/20 and will address sores.
--- NOTE | 2020-03-23 13:23 | PT.OTN ---
Current Diagnoses Stiffness of right hip, not elsewhere classified (03/23/20) Stiffness of left hip, not elsewhere classified (03/23/20) Low back pain (03/23/20) Muscle weakness (generalized) (03/23/20) Stress incontinence (female) (male) (03/23/20) Frequency of micturition (03/23/20) Physical Therapy Treatment Note PT-OP-A Visit Information Start: 02/27/20 18:37 Freq: Status: Active Protocol: Document 03/23/20 11:12 LRN (Rec: 03/23/20 12:06 LRN [id number]) Out-Patient Physical Therapy Visit Information Visit Information Visit Type Treatment Note Visit Start Time 11:12 Visit Stop Time 12:04 Total Visit Minutes 52 Visit Number 4 Evaluation Information Evaluation Date 03/01/20 Precautions Precautions Pt reported PF sores that are thickening. Visible sore on left external labia majora. PT-OP-B Current Condition Start: 02/27/20 18:37 Freq: Status: Active Protocol: Document 03/01/20 10:38 LRN (Rec: 03/01/20 11:50 LRN [id number]) Current Condition History of Current Condition Onset Date 40 years, but new physician 3 weeks ago. Current Complaints Urinary incontinence, History of Current Condition Pt has longstanding history of urinary incontinence and UTI' s. She has had treatments for both and is currently using medications to control her urinary frequency and leakage with a strong urges. She states she recently told her new primary care physician that she was open to suggestions for treatments with hopes of getting off her medications. States on the intake form all the questions regarding frequency and urgency are now no, but used to be yes. She reports she drinks a lot of coffee, but has cut back to 1/2 decaf coffee. She reports being on medications for her urinary incontinence for past 8 yrs. Prior Treatments and Tests 40 yrs ago, treatment for UTI' s - reamed out urethra and helped mostly the problems with the UTI's. States was painful. Currently she denies pain. She reports a bladder study done with Dr. Chester but results unknown, records unavailabe. Medicine for urgency and frequency of urination for past 8 years that helped with incontinence. Developmental History Developmental History 10 years ago was referred for biofeedback, but felt to weird , so did not do the therapy. Takes stool softeners daily. Treatment Goals Patient/Caregiver Goals Pt goal is to get off the medication, and stop urinary leakage when stressed. Prior Functional Status Baseline Function- ADL's Independent Baseline Function- Mobility Independent Baseline Function- Other Urinary leakage with feeling of urgency extremely frequent (urge 5 minutes after voiding) , and with activities. Current Functional Impairments (Reported) Functional Limitations- ADL's Urinary leakage when running or doing something physical or straining has a little leakage. 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 Personal Factors Other Personal Factors That May Effect Back & neck pain from over use Therapy/Recovery , initial injury was a back pain onset from pushing open an overhead door on a boat with R arm - in age 49's. Thyroid disorder - hypothyroidism since age 29. History of three vaginal births. PT-OP-C Subjective Start: 02/27/20 18:37 Freq: Status: Active Protocol: Document 03/23/20 11:12 LRN (Rec: 03/23/20 12:06 LRN [id number]) OP-PT Subjective Patient Comments Patient Comments States she hurt 3-4 days in the L lateral trunk after the manual squeezing of her R side. States after seeing Dr Rolando Long she is checking her insurance to see if she can get medication covered, either a pill or vaginal cream (for her PF). Having more leakage and is trying to drink more. States she is leaking more getting out of bed. States she drinks 1/2 coffee drink 8-4p. PT-OP-I Pelvic Floor Start: 02/27/20 18:37 Freq: Status: Active Protocol: Document 03/01/20 10:38 LRN (Rec: 03/01/20 11:50 LRN [id number]) Pelvic Floor Assessment Urine Pelvic Floor Surgery No Other Urinary Symptoms Urinary leakage with a stress. Leakage Size Small Bowel Bowel Surgery No [place] Stool Chart Type 1-7 4 [place] Stool Chart Comments Pt takes stool softner daily Pelvic Clock Pelvic Clock 12-3 Tightness Pelvic Clock 3-6 Tightness Pelvic Clock 6-9 Tightness Pelvic Clock 9-12 Tightness Perineal Descent Resting Absent Bearing Absent Contraction Ability Voluntary Contraction Absent Manual Muscle Testing Left 0 Manual Muscle Testing Right 0 Manual Muscle Testing Anterior 0 Manual Muscle Testing Posterior 0 Muscle Endurance (Seconds) 0 Number of Quick Contractions In 10 0 Seconds Comments Pelvic Floor Comments Pt performs PF contraction while bridging and elaine her core/hip/gluteal substitute muscles. One small area of redness on the L external labia majora. PT-OP-J Posture/Palpation/Skin Start: 02/27/20 18:37 Freq: Status: Active Protocol: Document 03/01/20 10:38 LRN (Rec: 03/01/20 11:50 LRN [id number]) Posture Evaluation Position Standing Evaluation View All positions L-Spine Posture Increased Lordosis Shoulder Posture (L) Elevated Pelvis Posture Anteriorly Tilted,(R) Iliac Crest Superior Knee Posture (L) Genu Varus,(R) Genu Varus Comments Posture Comments Mild C-curve of the spine, apex on left. PT-OP-K Range of Motion Start: 02/27/20 18:37 Freq: Status: Active Protocol: Document 03/01/20 10:38 LRN (Rec: 03/01/20 11:50 LRN [id number]) Lumbar Spine Range of Motion Lumbar Spine Active Degrees Testing Position Standing Flexion 70 Extension 30 Comments Goniometer reading Hip Goniometric Range of Motion Hip Right Passive Testing Position Supine External Rotation 25 Left Passive Testing Position Supine Internal Rotation 25 PT-OP-M Strength Start: 02/27/20 18:37 Freq: Status: Active Protocol: Document 03/01/20 10:38 LRN (Rec: 03/01/20 11:50 LRN [id number]) Trunk Strength Trunk Manual Muscle Testing Testing Position Supine Core Stabilization Loss of stability with LLE MMT Hip Strength Hip Manual Muscle Testing Right Flexion (L2) 5 Normal Extension (S1) 5 Normal Abduction 5 Normal Adduction 5 Normal External Rotation 4 Good Internal Rotation 5 Normal Left Flexion (L2) 5 Normal Extension (S1) 5 Normal Abduction 5 Normal Adduction 3 Fair External Rotation 3+ Fair+ Internal Rotation 5 Normal PT-OP-Q Treatments Start: 02/27/20 18:37 Freq: Status: Active Protocol: Document 03/23/20 11:12 LRN (Rec: 03/23/20 12:06 LRN [id number]) Therapeutic Exercises Supine Exercises Long holds Supine Exercise Name (Held wedge): PF contraction w/resisted R hip AD Side right Reps/Minutes 3' Quick Flicks Supine Exercise Name (Held wedge): PF contraction w/resisted R hip AD Side right Reps/Minutes 8' LE roll in/outs Supine Exercise Name LE roll in/out w/deep breathing/PF contraction Reps/Minutes 12' Comments I/S pt Knees flexed: to do 6 sec breath, no breath holding. Self-Care/Home Management Treatment Education Patient Education Body Mechanics,Home Exercise Program Other Education Body mechanics training and practice for transfers stand < > sit <> supine, addressing: proper mechanics, proper breathing, contraction of PF. Discussed at length alternatives for drinks late in afternoon with recommendations in avoiding caffeine and sugar in evenings . Discussed with recommendations in improving sleep at nighttime (deep breathing, decreasing caffeine , increasing exercise). Educated and discussed with pt : urinary delay techniques, discussed how to use to decrease urge, and discussed decreasing leaking and use for retraining bladder. Activities Self-Care/Home Management Activities Issued & reviewed: Supine LE Roll in/out handout, and Urinary deference technique. PT-OP-T Assessment and Plan Start: 02/27/20 18:37 Freq: Status: Active Protocol: Document 03/23/20 11:12 LRN (Rec: 03/23/20 12:06 LRN [id number]) Physical Therapy Assessment Goals Six Impairment Substitution of abdominal and gluteal ms to perform a PF contraction. Short Term Goal (STG) Pt will be able to perform a PF contraction in the absence of abdominal/gluteal muscles/ hip AD's. (03/08/20: Initiated awareness training for isolation of PF) STG Duration 04/27/20 Mcfp Goal (LTG) Pt will be aware of the sensation of a proper PF contraction. LTG Duration 05/30/20 Five Impairment Decreased hip strength/ stability Short Term Goal (STG) Improve hip mobility. STG Duration 04/27/20 Mcfp Goal (LTG) Pt will be able to squat without urinary leakage. LTG Duration 05/30/20 Four Impairment Decreased PF/core stability Short Term Goal (STG) Improve posture (reduce lordosis). STG Duration 04/27/20 Mcfp Goal (LTG) Pt will be able to demonstrate PF/core stability with resistance to her LE's without leakage. LTG Duration 05/30/20 Three Impairment Decreased PF endurance (Long Hold endurance is 0 secs) Short Term Goal (STG) Improve PF strength per Long Hold to 5 sec's and Quick Flicks 5 reps prior to fatigue to eliminate urinary incontinence with fast walking . STG Duration 04/27/20 Press Maintainer Goal (LTG) Improve PF strength per Long Hold to 10 sec's and Quick Flicks 10 reps prior to fatigue with pt able to decrease use of her urinary incontinence medication. LTG Duration 05/30/20 Two Impairment Decreased PF strength (Quick Flicks & Long hold strength 0/ 5) Short Term Goal (STG) Improve PF strength of Quick Flicks and Long holds to at least 3/5 in posterior wall and 2/5 in lateral mitchell, and pt awareness of anterior PF contraction. STG Duration 04/27/20 Mcfp Goal (LTG) Eliminate urinary leakage when straining with physical stress. LTG Duration 05/30/20 One Impairment Pt lacks an independent self care HEP. Short Term Goal (STG) Pt educated in progressive program for PF strengthening for being able to run a few steps without Urinary leakage. STG Duration 04/06/20 Mcfp Goal (LTG) Pt will be independent in a self care HEP for PF strengthening. (Issued HEP: Supine LE Roll in/out, Urinary deference technique) LTG Duration 05/30/20 Assessment Summary Assessment Pt having a hard time changing her dietary habits ( decreasing caffeine or sugar in afternoon). Pt is not completely receptive of increasing her exercise level during the winter season in order to improve her sleep pattern and reduce need for sleep medication. Pt notes increased leakage first in the morning. Physical Therapy Plan Frequency and Duration Frequency of Treatment 1x/Week Plan of Care Start Date 03/01/20 Plan of Care End Date 05/30/20 Next Visit Focus/Plan Next Note Type Treatment Note Next Visit Plan Review Urge deference techique , transfer training for hip hinging, Assess hip mobility and issue HEP as appropriate to improve ROM, Postural training to reduce lordosis, Check for progress towards isolation of PF contraction, Assess response to PF strengthening vs ? need for PF stretching. Assess for improvement of contraction at 9 O'Clock of PF clock (and compare to 3 O' Clock). PF strengthening, pt education in PF contraction using self physical feedback of visual inspection and use of hand on PF, posture training (reduce lordosis), progress as able coordination training of PF contraction. HEP: Hip ROM, PF relaxation training, core strengthening, L hip strengthening. Manual therapy to improve PF mobility . NOTE: Monitoring sore in PF, small visible abrasion on L external labia majora.
--- NOTE | 2020-03-30 16:50 | PT.OTN ---
Current Diagnoses Stiffness of right hip, not elsewhere classified (03/30/20) Stiffness of left hip, not elsewhere classified (03/30/20) Low back pain (03/30/20) Muscle weakness (generalized) (03/30/20) Stress incontinence (female) (male) (03/30/20) Frequency of micturition (03/30/20) Physical Therapy Treatment Note PT-OP-A Visit Information Start: 02/27/20 18:37 Freq: Status: Active Protocol: Document 03/30/20 11:21 LRN (Rec: 03/30/20 12:01 LRN [id number]) Out-Patient Physical Therapy Visit Information Visit Information Visit Type Treatment Note Visit Start Time 11:21 Visit Stop Time 11:45 Total Visit Minutes 24 Visit Number 5 Evaluation Information Evaluation Date 03/01/20 Precautions Precautions Pt reported PF sores that are thickening. Visible sore on left external labia majora. PT-OP-B Current Condition Start: 02/27/20 18:37 Freq: Status: Active Protocol: Document 03/01/20 10:38 LRN (Rec: 03/01/20 11:50 LRN [id number]) Current Condition History of Current Condition Onset Date 40 years, but new physician 3 weeks ago. Current Complaints Urinary incontinence, History of Current Condition Pt has longstanding history of urinary incontinence and UTI' s. She has had treatments for both and is currently using medications to control her urinary frequency and leakage with a strong urges. She states she recently told her new primary care physician that she was open to suggestions for treatments with hopes of getting off her medications. States on the intake form all the questions regarding frequency and urgency are now no, but used to be yes. She reports she drinks a lot of coffee, but has cut back to 1/2 decaf coffee. She reports being on medications for her urinary incontinence for past 8 yrs. Prior Treatments and Tests 40 yrs ago, treatment for UTI' s - reamed out urethra and helped mostly the problems with the UTI's. States was painful. Currently she denies pain. She reports a bladder study done with Dr. Chester but results unknown, records unavailabe. Medicine for urgency and frequency of urination for past 8 years that helped with incontinence. Developmental History Developmental History 10 years ago was referred for biofeedback, but felt to weird , so did not do the therapy. Takes stool softeners daily. Treatment Goals Patient/Caregiver Goals Pt goal is to get off the medication, and stop urinary leakage when stressed. Prior Functional Status Baseline Function- ADL's Independent Baseline Function- Mobility Independent Baseline Function- Other Urinary leakage with feeling of urgency extremely frequent (urge 5 minutes after voiding) , and with activities. Current Functional Impairments (Reported) Functional Limitations- ADL's Urinary leakage when running or doing something physical or straining has a little leakage. 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 Personal Factors Other Personal Factors That May Effect Back & neck pain from over use Therapy/Recovery , initial injury was a back pain onset from pushing open an overhead door on a boat with R arm - in age 49's. Thyroid disorder - hypothyroidism since age 29. History of three vaginal births. PT-OP-C Subjective Start: 02/27/20 18:37 Freq: Status: Active Protocol: Document 03/30/20 11:21 LRN (Rec: 03/30/20 12:01 LRN [id number]) OP-PT Subjective Patient Comments Patient Comments Requests shortened therapy due to another appt an requests leaving before 11:45 vs normal end time of 12:00 noon. States she got a coffee substitute and she thought it was good. PT-OP-I Pelvic Floor Start: 02/27/20 18:37 Freq: Status: Active Protocol: Document 03/01/20 10:38 LRN (Rec: 03/01/20 11:50 LRN [id number]) Pelvic Floor Assessment Urine Pelvic Floor Surgery No Other Urinary Symptoms Urinary leakage with a stress. Leakage Size Small Bowel Bowel Surgery No [place] Stool Chart Type 1-7 4 [place] Stool Chart Comments Pt takes stool softner daily Pelvic Clock Pelvic Clock 12-3 Tightness Pelvic Clock 3-6 Tightness Pelvic Clock 6-9 Tightness Pelvic Clock 9-12 Tightness Perineal Descent Resting Absent Bearing Absent Contraction Ability Voluntary Contraction Absent Manual Muscle Testing Left 0 Manual Muscle Testing Right 0 Manual Muscle Testing Anterior 0 Manual Muscle Testing Posterior 0 Muscle Endurance (Seconds) 0 Number of Quick Contractions In 10 0 Seconds Comments Pelvic Floor Comments Pt performs PF contraction while bridging and elaine her core/hip/gluteal substitute muscles. One small area of redness on the L external labia majora. PT-OP-J Posture/Palpation/Skin Start: 02/27/20 18:37 Freq: Status: Active Protocol: Document 03/01/20 10:38 LRN (Rec: 03/01/20 11:50 LRN [id number]) Posture Evaluation Position Standing Evaluation View All positions L-Spine Posture Increased Lordosis Shoulder Posture (L) Elevated Pelvis Posture Anteriorly Tilted,(R) Iliac Crest Superior Knee Posture (L) Genu Varus,(R) Genu Varus Comments Posture Comments Mild C-curve of the spine, apex on left. PT-OP-K Range of Motion Start: 02/27/20 18:37 Freq: Status: Active Protocol: Document 03/30/20 11:21 LRN (Rec: 03/30/20 12:01 LRN [id number]) Hip Goniometric Range of Motion Hip Right Passive Testing Position Supine Internal Rotation 30 External Rotation 50 Left Passive Testing Position Supine Internal Rotation 20 External Rotation 60 PT-OP-M Strength Start: 02/27/20 18:37 Freq: Status: Active Protocol: Document 03/01/20 10:38 LRN (Rec: 03/01/20 11:50 LRN [id number]) Trunk Strength Trunk Manual Muscle Testing Testing Position Supine Core Stabilization Loss of stability with LLE MMT Hip Strength Hip Manual Muscle Testing Right Flexion (L2) 5 Normal Extension (S1) 5 Normal Abduction 5 Normal Adduction 5 Normal External Rotation 4 Good Internal Rotation 5 Normal Left Flexion (L2) 5 Normal Extension (S1) 5 Normal Abduction 5 Normal Adduction 3 Fair External Rotation 3+ Fair+ Internal Rotation 5 Normal PT-OP-Q Treatments Start: 02/27/20 18:37 Freq: Status: Active Protocol: Document 03/30/20 11:21 LRN (Rec: 03/30/20 12:01 LRN [id number]) Therapeutic Exercises Supine Exercises Hip IR stretch Supine Exercise Name Piriformis (knee to opposite shoulder) Side bilateral Reps/Minutes 11' Therapist stretching f/b patient self stretch Comments Extra time for training and max stretch tolerance Therapeutic Activity Therapeutic Activity Transfer training Name sit to supine and back Reps/Minutes 10' Comments Phys & v cuing for proper transfer and breath work. Self-Care/Home Management Treatment Education Patient Education Home Exercise Program Activities Self-Care/Home Management Activities Issued & reviewed HEP: * Piriformis stretch (knee to opposite shoulder). PT-OP-T Assessment and Plan Start: 02/27/20 18:37 Freq: Status: Active Protocol: Document 03/30/20 11:21 LRN (Rec: 03/30/20 12:01 LRN [id number]) Physical Therapy Assessment Goals Six Impairment Substitution of abdominal and gluteal ms to perform a PF contraction. Short Term Goal (STG) Pt will be able to perform a PF contraction in the absence of abdominal/gluteal muscles/ hip AD's. (03/08/20: Initiated awareness training for isolation of PF) STG Duration 04/27/20 Plant Superintendent Goal (LTG) Pt will be aware of the sensation of a proper PF contraction. LTG Duration 05/30/20 Five Impairment Decreased hip strength/ stability Short Term Goal (STG) Improve hip mobility. STG Duration 04/27/20 Plant Superintendent Goal (LTG) Pt will be able to squat without urinary leakage. LTG Duration 05/30/20 Four Impairment Decreased PF/core stability Short Term Goal (STG) Improve posture (reduce lordosis). STG Duration 04/27/20 Senior Care Goal (LTG) Pt will be able to demonstrate PF/core stability with resistance to her LE's without leakage. LTG Duration 05/30/20 Three Impairment Decreased PF endurance (Long Hold endurance is 0 secs) Short Term Goal (STG) Improve PF strength per Long Hold to 5 sec's and Quick Flicks 5 reps prior to fatigue to eliminate urinary incontinence with fast walking . STG Duration 04/27/20 Plant Superintendent Goal (LTG) Improve PF strength per Long Hold to 10 sec's and Quick Flicks 10 reps prior to fatigue with pt able to decrease use of her urinary incontinence medication. LTG Duration 05/30/20 Two Impairment Decreased PF strength (Quick Flicks & Long hold strength 0/ 5) Short Term Goal (STG) Improve PF strength of Quick Flicks and Long holds to at least 3/5 in posterior wall and 2/5 in lateral mitchell, and pt awareness of anterior PF contraction. STG Duration 04/27/20 Senior Care Goal (LTG) Eliminate urinary leakage when straining with physical stress. LTG Duration 05/30/20 One Impairment Pt lacks an independent self care HEP. Short Term Goal (STG) Pt educated in progressive program for PF strengthening for being able to run a few steps without Urinary leakage. STG Duration 04/06/20 Plant Superintendent Goal (LTG) Pt will be independent in a self care HEP for PF strengthening. (Issued HEP: STRENGTHENING: *Supine LE Roll in/out STRETCH: *Piriformis stretch (knee to opposite shoulder) EDUC: *Urinary deference technique LTG Duration 05/30/20 (03/30/20: Progressing Progress Towards Goals Progress Comments HEP added. Assessment Summary Assessment Pt had no questions with urge technique and she used it through the week. Pt not performing transfer in/out of bed properly with breath holding and fair mechanics. Able to perform mechanics properly after training, but will probably need further training with proper breathing . Pt has tightness of bilateral rotators of the hips . Pt is waiting for online medication creams for her PF ( sores and PF health); therefore will hold therapy for a few weeks for pt to obtain and use creams to improve PF health. Pt would benefit from further therapy after medication treatments to improve PF strength and for possible use of vaginal electrode for biofeedback training. Physical Therapy Plan Frequency and Duration Frequency of Treatment 1x/Week Plan of Care Start Date 03/01/20 Plan of Care End Date 05/30/20 Next Visit Focus/Plan Next Note Type Treatment Note Next Visit Plan Recheck in 3 weeks after pt receives her medications/ creams for treatment of her PF . Review transfer training for proper breathing and hip hinging, and HEP hip IR stretch. PF assessment if pt agreeable. Add hip ER stretching and assess Hamstring/Iliopsoas mobility and LB for flexion ( KTC), Postural training to reduce lordosis, Check for progress towards isolation of PF contraction, Assess response to PF strengthening vs ? need for PF stretching. Assess for improvement of contraction at 9 O'Clock of PF clock (and compare to 3 O' Clock). PF strengthening, pt education in PF contraction using self physical feedback of visual inspection and use of hand on PF, progress as able coordination training of PF contraction. HEP: Hip ROM (ER, ?hamstring, ?hip flexors, ?AB's), PF relaxation training, core strengthening, L hip strengthening. Manual therapy to improve PF mobility. NOTE : Monitoring sore in PF, small visible abrasion on L external labia majora.
--- NOTE | 2020-04-06 17:12 | PT.OTN ---
Current Diagnoses Stiffness of right hip, not elsewhere classified (04/06/20) Stiffness of left hip, not elsewhere classified (04/06/20) Low back pain (04/06/20) Muscle weakness (generalized) (04/06/20) Stress incontinence (female) (male) (04/06/20) Frequency of micturition (04/06/20) Physical Therapy Treatment Note PT-OP-A Visit Information Start: 02/27/20 18:37 Freq: Status: Active Protocol: Document 04/06/20 11:26 LRN (Rec: 04/06/20 12:34 LRN [id number]) Out-Patient Physical Therapy Visit Information Visit Information Visit Type Treatment Note Visit Start Time 11:26 Visit Stop Time 12:16 Total Visit Minutes 50 Visit Number 6 Evaluation Information Evaluation Date 03/01/20 Precautions Precautions Pt reported PF sores that are thickening. Visible sore on left external labia majora. PT-OP-B Current Condition Start: 02/27/20 18:37 Freq: Status: Active Protocol: Document 03/01/20 10:38 LRN (Rec: 03/01/20 11:50 LRN [id number]) Current Condition History of Current Condition Onset Date 40 years, but new physician 3 weeks ago. Current Complaints Urinary incontinence, History of Current Condition Pt has longstanding history of urinary incontinence and UTI' s. She has had treatments for both and is currently using medications to control her urinary frequency and leakage with a strong urges. She states she recently told her new primary care physician that she was open to suggestions for treatments with hopes of getting off her medications. States on the intake form all the questions regarding frequency and urgency are now no, but used to be yes. She reports she drinks a lot of coffee, but has cut back to 1/2 decaf coffee. She reports being on medications for her urinary incontinence for past 8 yrs. Prior Treatments and Tests 40 yrs ago, treatment for UTI' s - reamed out urethra and helped mostly the problems with the UTI's. States was painful. Currently she denies pain. She reports a bladder study done with Dr. Chester but results unknown, records unavailabe. Medicine for urgency and frequency of urination for past 8 years that helped with incontinence. Developmental History Developmental History 10 years ago was referred for biofeedback, but felt to weird , so did not do the therapy. Takes stool softeners daily. Treatment Goals Patient/Caregiver Goals Pt goal is to get off the medication, and stop urinary leakage when stressed. Prior Functional Status Baseline Function- ADL's Independent Baseline Function- Mobility Independent Baseline Function- Other Urinary leakage with feeling of urgency extremely frequent (urge 5 minutes after voiding) , and with activities. Current Functional Impairments (Reported) Functional Limitations- ADL's Urinary leakage when running or doing something physical or straining has a little leakage. 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 Personal Factors Other Personal Factors That May Effect Back & neck pain from over use Therapy/Recovery , initial injury was a back pain onset from pushing open an overhead door on a boat with R arm - in age 49's. Thyroid disorder - hypothyroidism since age 29. History of three vaginal births. PT-OP-C Subjective Start: 02/27/20 18:37 Freq: Status: Active Protocol: Document 04/06/20 11:26 LRN (Rec: 04/06/20 12:34 LRN [id number]) OP-PT Subjective Patient Comments Patient Comments Has been using creams, hasn't received medication pills. States things are better because she stopped drinking coffee in afternoon and is dringkin more water and doing the exercises and everything is getting better and is not leaking as much . If straining or good laugh is still leaking. Itching is not there. In 3 eays doing and operation on L lower leg to remove Squamous cell carcinoma . Frequency of urination is less, thingks she is going 7 times per day, by using delay technique. Getting out of bved in morning forgets to transfer the proper way. PT-OP-I Pelvic Floor Start: 02/27/20 18:37 Freq: Status: Active Protocol: Document 04/06/20 11:26 LRN (Rec: 04/06/20 12:34 LRN [id number]) Pelvic Floor Assessment Pelvic Clock Pelvic Clock 12-3 Tightness Pelvic Clock 3-6 Tightness Contraction Ability Manual Muscle Testing Left 3 Manual Muscle Testing Right 1 Manual Muscle Testing Anterior 1 Manual Muscle Testing Posterior 3 Muscle Endurance (Seconds) 10 Number of Quick Contractions In 10 2 Seconds Comments Pelvic Floor Comments Quick Flicker on R side Long hold on L side only for 10 secs, R side decrease after 3 secs. Quick Flicks: 2 contractions before general fatigue PT-OP-J Posture/Palpation/Skin Start: 02/27/20 18:37 Freq: Status: Active Protocol: Document 03/01/20 10:38 LRN (Rec: 03/01/20 11:50 LRN [id number]) Posture Evaluation Position Standing Evaluation View All positions L-Spine Posture Increased Lordosis Shoulder Posture (L) Elevated Pelvis Posture Anteriorly Tilted,(R) Iliac Crest Superior Knee Posture (L) Genu Varus,(R) Genu Varus Comments Posture Comments Mild C-curve of the spine, apex on left. PT-OP-K Range of Motion Start: 02/27/20 18:37 Freq: Status: Active Protocol: Document 04/06/20 11:26 LRN (Rec: 04/06/20 12:34 LRN [id number]) Hip Goniometric Range of Motion Hip Right Passive Testing Position Supine Internal Rotation 25 External Rotation 60 Left Passive Testing Position Supine Internal Rotation 20 External Rotation 60 PT-OP-M Strength Start: 02/27/20 18:37 Freq: Status: Active Protocol: Document 03/01/20 10:38 LRN (Rec: 03/01/20 11:50 LRN [id number]) Trunk Strength Trunk Manual Muscle Testing Testing Position Supine Core Stabilization Loss of stability with LLE MMT Hip Strength Hip Manual Muscle Testing Right Flexion (L2) 5 Normal Extension (S1) 5 Normal Abduction 5 Normal Adduction 5 Normal External Rotation 4 Good Internal Rotation 5 Normal Left Flexion (L2) 5 Normal Extension (S1) 5 Normal Abduction 5 Normal Adduction 3 Fair External Rotation 3+ Fair+ Internal Rotation 5 Normal PT-OP-Q Treatments Start: 02/27/20 18:37 Freq: Status: Active Protocol: Document 04/06/20 11:26 LRN (Rec: 04/06/20 12:34 LRN [id number]) Therapeutic Exercises Supine Exercises Hip IR stretch Supine Exercise Name Piriformis (knee to opposite shoulder & crosss legged) Side bilateral Reps/Minutes 11' Therapist stretching f/b patient self stretch Comments Extra time for training review Long holds Supine Exercise Name Sup PF contraction w and without/resisted R hip AD Side bilateral Reps/Minutes 8' Quick Flicks Supine Exercise Name Sup PF contraction with & without/resisted R hip AD Side bilateral Reps/Minutes 8' Isolation of PF training Supine Exercise Name Isolated PF contraction training Side bilateral Reps/Minutes 5' Comments Pt using inner gluteals with PF Deep Breathing Supine Exercise Name Deep Breathing Reps/Minutes 2' Self-Care/Home Management Treatment Education Patient Education Home Exercise Program Other Education Review of pt's past week with discussion of urinary leakage with activities & frequency of leakage. Discussesd pt's use of cream vs medication for continued PF care. Review & education of PF contraction in isolation of gluteals with training to use hands and mirror for physical and visual biofeedback. Activities Self-Care/Home Management Activities I/S pt in PF strengthening with focus on R side: PF contraction with R BKFO and R ball squeeze. PT-OP-T Assessment and Plan Start: 02/27/20 18:37 Freq: Status: Active Protocol: Document 04/06/20 11:26 LRN (Rec: 04/06/20 12:34 LRN [id number]) Physical Therapy Assessment Goals Six Impairment Substitution of abdominal and gluteal ms to perform a PF contraction. Short Term Goal (STG) Pt will be able to perform a PF contraction in the absence of abdominal/gluteal muscles/ hip AD's. (03/08/20: Initiated awareness training for isolation of PF) STG Duration 04/27/20 (04/06/20: PARTIALLY MET, pt uses deep hip IR's) Retirement Goal (LTG) Pt will be aware of the sensation of a proper PF contraction. LTG Duration 05/30/20 (04/06/20: NOT MET GOAL) Five Impairment Decreased hip strength/ stability Short Term Goal (STG) Improve hip mobility. STG Duration 04/27/20 (04/06/20: PARTIALLY MET GOAL, see ROM measurements ) Retirement Goal (LTG) Pt will be able to squat without urinary leakage. LTG Duration 05/30/20 (04/06/20: IMPROVED, NOT MET GOAL. Generally leaking less) Four Impairment Decreased PF/core stability Short Term Goal (STG) Improve posture (reduce lordosis). (04/06/20: Pt able to improve posture with verbal cuing of TA tightening). STG Duration 04/27/20 (04/06/20: PARTIALLY MET GOAL) Operations Program Manager Goal (LTG) Pt will be able to demonstrate PF/core stability with resistance to her LE's without leakage. LTG Duration 05/30/20 (04/06/20: MET GOAL) Three Impairment Decreased PF endurance (Long Hold endurance is 0 secs) Short Term Goal (STG) Improve PF strength per Long Hold to 5 sec's and Quick Flicks 5 reps prior to fatigue to eliminate urinary incontinence with fast walking . (04/06/20: Pt able to perform a Long hold of 10 sec's with contraction of L side felt, but is not able to perform 10 quick contractions prior to fatigue. Activity of fast walking has not been assessed by pt). STG Duration 04/27/20 (04/06/20: PARTIALLY MET GOAL) Retirement Goal (LTG) Improve PF strength per Long Hold to 10 sec's and Quick Flicks 10 reps prior to fatigue with pt able to decrease use of her urinary incontinence medication. (04/06/20: Pt able to perform a Long hold of 10 sec's with contraction of L side felt, but is not able to perform 10 quick contractions prior to fatigue. The pt has not had a change in her medication requirements) LTG Duration 05/30/20 (04/06/20: PARTIALLY MET GOAL) Two Impairment Decreased PF strength (Quick Flicks & Long hold strength 0/ 5) Short Term Goal (STG) Improve PF strength of Quick Flicks and Long holds to at least 3/5 in posterior wall and 2/5 in lateral mitchell, and pt awareness of anterior PF contraction. (04/06/20: PF strength is: posterior 3/5, left lateral wall 3/5, right lateral wall 1 /5) STG Duration 04/27/20 (04/06/20: PARTIALLY MET GOAL) Retirement Goal (LTG) Eliminate urinary leakage when straining with physical stress. (04/06/20: Lifting gets leakage, not tested lifting. ) LTG Duration 05/30/20 (04/06/20: IMPROVED, NOT MET GOAL) One Impairment Pt lacks an independent self care HEP. Short Term Goal (STG) Pt educated in progressive program for PF strengthening for being able to run a few steps without Urinary leakage. (04/06/20: Not tested by pt) STG Duration 04/06/20 (04/06/20: NOT MET GOAL) Operations Program Manager Goal (LTG) Pt will be independent in a self care HEP for PF strengthening. (Issued HEP: STRENGTHENING: *Supine LE Roll in/out STRETCH: *Piriformis stretch (knee to opposite shoulder) EDUC: *Urinary deference technique LTG Duration 05/30/20 (03/30/20: MET GOAL) Assessment Summary Assessment Today pt demonstrates improved hip mobility of R side with ER, pt needs to improve IR mobility bilaterally. Her PF shows no visible sores externally, pt notes sores have never been internally. Pt has improved her PF strength, but weakness is still present in the right lateral wall and anteriorly. Overall the pt has improved in PF strength and has been placed on a self care HEP for her to continue her strengthening program. The pt is choosing to be placed on a home program, but could benefit from further physical therapy. It is recommended that she start her pelvic health medications (when she obtains them) and when her pelvic health has improved ( sores addressed) and if she feels urinary leakage continues to be a problem referral back to therapy to complete a PF rehab program would be appropriate. Physical Therapy Plan Frequency and Duration Frequency of Treatment 1x/Week Plan of Care Start Date 03/01/20 Plan of Care End Date 05/30/20 Discharge Physical Therapy Discharge Reasons Patient Request Discharge Comments Pt is happy with progress and is ready for discharge to self long-term program. She is going to try and get on a medication to further improve the health of her PF and will return to therapy if she is not able to improve over time. She understands she will need a new referral to return to therapy. The pt could benefit from further PT once she further improves the health of her PF. Thank you for your referral.
== END 2020-04-13 08:58 ==
LOC: PHYS 11:15
PROVIDERS: PCP Nurse Practitioner; Referring Provider Nurse Practitioner; Visit Provider Nurse Practitioner
DX: N39.3 Stress incontinence (female) (male) (principal); R35.0 Frequency of micturition; M62.81 Muscle weakness (generalized); M25.651 Stiffness of right hip, not elsewhere classified; M25.652 Stiffness of left hip, not elsewhere classified; M54.5 Low back pain
CPT/HCPCS: 97110; 97112; 97161; 97530; 97535

== ENCOUNTER → 2020-05-28 09:00 | Outpatient (CLI) | payer MEDICARE, OTHER, SELFPAY ==
[2020-05-28 10:07] LABS: Cholesterol 199 mg/dL (140-199); Glucose 123 mg/dL (80-110); HDL Cholesterol 52 mg/dL (40-60); LDL Cholesterol Calculated 115 mg/dL (<100); Triglycerides 159 mg/dL (35-150)
[2020-05-28 10:14] LABS: Hemoglobin A1C% w Est Avg Glu 5.6 % (4.0-6.0)
[2020-05-28 10:45] LABS: Creatinine Urine Random 79.6 mg/dL
[2020-05-28 10:51] LABS: Microalbumi Creatinin Ratio Ur 7.5 ug/mg CR (<30); Microalbumin Urine Random 0.6 mg/dL (0-1.6)
== END ==
PROVIDERS: PCP Nurse Practitioner; Referring Provider Nurse Practitioner; Visit Provider Nurse Practitioner
DX: E03.9 Hypothyroidism, unspecified (principal); E78.2 Mixed hyperlipidemia; I10 Essential (primary) hypertension; N39.3 Stress incontinence (female) (male); R73.9 Hyperglycemia, unspecified; F32.9 Major depressive disorder, single episode, unspecified; R94.5 Abnormal results of liver function studies; Z79.899 Other long term (current) drug therapy
CPT/HCPCS: 80061; 82043; 82570; 82947; 83036

== ENCOUNTER → 2020-11-21 11:43 | Outpatient (CLI) | payer MEDICARE, OTHER, SELFPAY ==
--- NOTE | 2020-11-21 11:45 | DI.MG.S_ITS ---
BILATERAL DIGITAL SCREENING MAMMOGRAM 3D/2D WITH CAD: 11/21/2020 CLINICAL: Routine screening. Comparison is made to exams dated: 09/07/2019 mammogram, 01/05/2018 ultrasound, and 12/10/2017 mammogram - [facility]. The tissue of both breasts is heterogeneously dense. This may lower the sensitivity of mammography. Current study was also evaluated with a Computer Aided Detection (CAD) system. No significant masses, calcifications, or other findings are seen in either breast. There has been no significant interval change. IMPRESSION: NEGATIVE There is no mammographic evidence of malignancy. A 1 year screening mammogram is recommended. This exam was interpreted at Station ID: [id number]. NOTE: For mammograms, a report in lay terms will be sent to the patient. Approximately 15% of breast malignancies will not be visualized mammographically. In the management of a palpable breast mass, a negative mammogram must not discourage biopsy of a clinically suspicious lesion. Electronically Signed By: Torsten Forbes M.D., jr/chalino:11/21/2020 12:52:07 letter sent: Normal Exam ACR BI-RADS Category 1: Negative 3341F
== END ==
PROVIDERS: PCP Nurse Practitioner; Referring Provider Nurse Practitioner; Visit Provider Nurse Practitioner
DX: Z12.31 Encounter for screening mammogram for malignant neoplasm of breast (principal)
CPT/HCPCS: 77063; 77067

== ENCOUNTER → 2020-11-26 15:51 | Outpatient (CLI) | payer MEDICARE, OTHER, SELFPAY ==
[2020-11-26 16:52] LABS: Add Manual Diff / Slide Review NO; Basophils Absolute Auto 100 /uL (0-100); Basophils Percent Auto 0.9 % (0-2); Eosinophils Absolute Auto 100 /uL (0-450); Eosinophils Percent Auto 1.6 % (2-4); Hematocrit 37.4 % (36-46); Hemoglobin 12.6 g/dL (12.0-16.0); Lymphocytes Absolute Auto 1400 /uL (1100-4500); Lymphocytes Percent Auto 16.4 % (25-40); Mean Corpuscular HGB Conc 33.6 % (30-36); Mean Corpuscular Hemoglobin 32.6 PG (26-34); Mean Corpuscular Volume 97.1 fL (80-100); Monocytes Absolute Auto 600 /uL (0-900); Monocytes Percent Auto 6.9 % (3-14); Neutrophils Absolute Auto 6300 /uL (1500-7000); Neutrophils Percent Auto 74.2 % (50-75); Platelet Count 227 X10^3/uL (150-400); Red Blood Cell Count 3.85 X10^6/uL (4.0-5.2); Red Cell Distribution Width 12.7 % (11.6-14.8); White Blood Cell Count 8.5 X10^3/uL (4.5-11.0)
[2020-11-26 17:02] LABS: Alanine Aminotransferase 21 IU/L (<35); Albumin 4.6 g/dL (3.5-5.0); Albumin Globulin Ratio 1.5 (1.0-2.8); Alkaline Phosphatase 120 U/L (38-126); Aspartate Aminotransferase 23 IU/L (14-36); BUN Creatinine Ratio 14.5 (6-22); Bilirubin Total 0.5 mg/dL (0.2-1.3); Bilirubin Unconjugated 0.4 mg/dL (0.0-1.1); Blood Urea Nitrogen 12 mg/dL (7-17); Estimated Glomerular Filt Rate > 60.0 mL/min (>60); HEMOLYSIS < 15 (0-50); Lipase 114 U/L (23-300); Total Protein 7.6 g/dL (6.3-8.2)
[2020-11-26 17:23] LABS: Appearance Urine UA CLEAR; Bacteria Urine Occasional (0-1); Bilirubin Urine UA NEGATIVE (NEGATIVE); Color Urine UA YELLOW; Culture Indicated Urine Specimen Cultured; Glucose Urine UA NEGATIVE (Negative); Ketones Urine UA NEGATIVE (NEGATIVE); Leukocyte Esterase Urine UA TRACE (NEGATIVE); Mucus Urine 1+ (Negative); Nitrite Urine UA NEGATIVE (Negative); Occult Blood Urine UA TRACE-INTACT (Negative); Protein Urine UA NEGATIVE (Negative); RBC Urine 5-10/HPF (0-5/HPF); Specific Gravity Urine UA 1.015 (1.000-1.035); Squamous Epithelial Cell Urine 1-5 /HPF (0-5/HPF); Urobilinogen Urine UA 0.2 E.U./dL (0.2); WBC Urine 5-10/HPF (0-5/HPF)
== END ==
PROVIDERS: PCP Nurse Practitioner; Referring Provider Student in an Organized Health Care Education/Training Program; Visit Provider Student in an Organized Health Care Education/Training Program
DX: R10.12 Left upper quadrant pain (principal)
CPT/HCPCS: 36415; 80076; 81001; 82565; 83690; 84520; 85025; 87086

== ENCOUNTER → 2020-11-30 09:50 | Outpatient (CLI) | payer MEDICARE, OTHER, SELFPAY ==
--- NOTE | 2020-11-30 10:29 | DI.CT.S_ITS ---
PROCEDURE: CT ABDOMEN PELVIS W CON INDICATIONS: LUQ pain TECHNIQUE: After the administration of oral and intravenous contrast, axial sections were acquired from the lung bases to the pubic symphysis. Coronal and sagittal reformats were performed. For radiation dose reduction, the following was used: automated exposure control, adjustment of mA and/or kV according to patient size. COMPARISON:[facility], CT, ABDOMEN/PELVIS WITH CONTRAST, 06/12/2006, 9:52. US, ABDOMEN COMPLETE, 04/26/2015, 11:37. [facility], CT, ABDOMEN W&WO CONTRAST, 05/15/2015, 9:27. FINDINGS: Image quality: Excellent. Lung bases: Unremarkable. Heart: No significant findings. ABDOMEN: Liver: There is a 1.1 x 2.0 x 1.7 cm cyst in segment 4. A 0.5 cm low-density nodule is seen in the inferior right hepatic lobe, also likely a cyst. Liver is normal in size. Moderate hepatic steatosis. Gallbladder: Gallbladder contains a small calcified gallstone. Biliary ducts: Unremarkable. Pancreas: Unremarkable. Spleen: Unremarkable. Adrenal Glands: Unremarkable. Kidneys and Ureters: There is a large simple appearing cyst in the superior pole of the left kidney measuring 7.3 x 6.3 x 8.4 cm. Stomach and Bowel: Stomach, small bowel loops, and colon are unremarkable. Peritoneum: No abnormal intraperitoneal fluid. No free air. Ventral Wall: No hernia. Abdominal Nodes: No retroperitoneal or mesenteric adenopathy by size criteria. Vessels: Aorta and inferior vena cava are normal in size. PELVIS: Pelvic Organs: Uterus is normal. There are enlarged suspicious veins in the left adnexa. Bladder: Unremarkable. Pelvic Nodes: No enlarged lymph nodes. Miscellaneous: No inguinal hernias are seen. Bones: Mild levoscoliosis. Degenerative changes are noted in the lumbar spine. IMPRESSION: 1. No acute inflammatory process in abdomen or pelvis. 2. A large simple appearing cyst in the superior pole of the left kidney measuring 7.3 x 6.3 x 8.4 cm. 3. Small hepatic cysts. 4. Hepatic steatosis. 5. Enlarged veins in the left pelvis, suggesting pelvic congestion syndrome. Dictated by: Angie Merritt M.D. on 11/30/2020 at 16:30 Approved by: Angie Merritt M.D. on 11/30/2020 at 16:40
== END ==
PROVIDERS: PCP Nurse Practitioner; Referring Provider Student in an Organized Health Care Education/Training Program; Visit Provider Student in an Organized Health Care Education/Training Program
DX: R10.12 Left upper quadrant pain (principal); K76.0 Fatty (change of) liver, not elsewhere classified; N28.1 Cyst of kidney, acquired; K76.89 Other specified diseases of liver; I87.8 Other specified disorders of veins
CPT/HCPCS: 74177

== ENCOUNTER → 2020-12-24 11:32 | Outpatient (CLI) | payer MEDICARE, OTHER, SELFPAY ==
[2020-12-24 17:46] LABS: Hep C Virus Ab w/Reflex Quant NEGATIVE s/c (NEGATIVE)
== END ==
PROVIDERS: PCP Nurse Practitioner; Referring Provider Nurse Practitioner; Visit Provider Nurse Practitioner
DX: K76.0 Fatty (change of) liver, not elsewhere classified (principal); Z11.59 Encounter for screening for other viral diseases; Z91.89 Other specified personal risk factors, not elsewhere classified
CPT/HCPCS: 36415; 86803

== ENCOUNTER → 2021-03-07 09:58 | Outpatient (CLI) | payer MEDICARE, OTHER, SELFPAY ==
[2021-03-07 11:50] LABS: Alanine Aminotransferase 21 IU/L (<35); Albumin 4.9 g/dL (3.5-5.0); Albumin Globulin Ratio 1.4 (1.0-2.8); Alkaline Phosphatase 96 U/L (38-126); Aspartate Aminotransferase 25 IU/L (14-36); BUN Creatinine Ratio 20.9 (6-22); Bilirubin Total 0.5 mg/dL (0.2-1.3); Blood Urea Nitrogen 18 mg/dL (7-17); Calcium 9.8 mg/dL (8.4-10.2); Carbon Dioxide 27 mmol/L (22-32); Chloride 105 mmol/L (98-107); Cholesterol 227 mg/dL (140-199); Estimated Glomerular Filt Rate > 60.0 mL/min (>60); Globulin 3.4 g/dL (1.7-4.1); Glucose 118 mg/dL (80-110); HDL Cholesterol 61 mg/dL (40-60); HEMOLYSIS 15 (0-50); LDL Cholesterol Calculated 128 mg/dL (<100); Potassium 4.2 mmol/L (3.4-5.1); Sodium 140 mmol/L (137-145); Total Protein 8.3 g/dL (6.3-8.2); Triglycerides 188 mg/dL (35-150)
[2021-03-07 11:53] LABS: Microalbumi Creatinin Ratio Ur 12.9 ug/mg CR (<30); Microalbumin Urine Random 1.1 mg/dL (0-1.6)
[2021-03-07 12:18] LABS: Thyroid Stimulating Hormone 2.73 uIU/mL (0.47-4.68)
== END ==
PROVIDERS: PCP Nurse Practitioner; Referring Provider Nurse Practitioner; Visit Provider Nurse Practitioner
DX: E78.2 Mixed hyperlipidemia (principal); E03.9 Hypothyroidism, unspecified; F32.9 Major depressive disorder, single episode, unspecified; I10 Essential (primary) hypertension; Z79.899 Other long term (current) drug therapy
CPT/HCPCS: 36415; 80053; 80061; 82043; 82570; 84443

== ENCOUNTER → 2021-05-09 13:46 | Outpatient (CLI) | payer MEDICARE, OTHER, SELFPAY ==
--- NOTE | 2021-05-09 13:48 | DI.US.S_ITS ---
PROCEDURE: US RENAL COMPLETE INDICATIONS: EVALUATE LEFT RENAL CYST TECHNIQUE: Real-time scanning was performed of the kidneys and bladder, with image documentation. COMPARISON: [facility], CT, CT ABDOMEN PELVIS W CON, 11/30/2020, 10:43. FINDINGS: Kidneys: Kidneys are normal in size. Right kidney measures 9.1 cm long; left kidney measures 14.6 cm long. Right renal cortical thickness is 1.5 cm; left renal cortical thickness is 2.1 cm. Renal cortical echotexture is normal. No hydronephrosis or nephrolithiasis. No suspicious solid mass lesions. There is a right renal cyst measuring 9.7 x 5.8 x 7.2 cm, previously 7.3 x 6.3 x 8.4 cm Bladder: Pre-void bladder volume is 238 mL. Post-void residual is 0 mL. Pre-void images demonstrate no intraluminal masses or stones. On pre-void images, bilateral ureteral jets are noted with color Doppler interrogation. (Of note, ureteral jets may not be detectable in up to 25% of cases due to insufficient differences in specific gravity between ureteral and bladder urine). Miscellaneous: No free pelvic fluid. IMPRESSION: Left renal simple cyst is similar to the prior Dictated by: Sachin Langford M.D. on 05/09/2021 at 16:20 Approved by: Sachin Langford M.D. on 05/09/2021 at 16:31
== END ==
PROVIDERS: PCP Nurse Practitioner; Referring Provider Urology; Visit Provider Urology
DX: N28.1 Cyst of kidney, acquired (principal)
CPT/HCPCS: 76770

== ENCOUNTER → 2021-11-22 11:07 | Outpatient (CLI) | payer MEDICARE, OTHER, SELFPAY ==
--- NOTE | 2021-11-22 11:10 | DI.MG.S_ITS ---
BILATERAL DIGITAL SCREENING MAMMOGRAM 3D/2D WITH CAD: 11/22/2021 CLINICAL: Routine screening. Comparison is made to exams dated: 11/21/2020 mammogram, 09/07/2019 mammogram, and 12/10/2017 mammogram - [facility]. Both breasts are heterogeneously dense, which may obscure small masses (category c / 51-75% glandular tissue). Current study was also evaluated with a Computer Aided Detection (CAD) system. There are benign calcifications in the left breast. No significant masses, calcifications, or other findings are seen in either breast. There has been no significant interval change. IMPRESSION: BENIGN There is no mammographic evidence of malignancy. A 1 year screening mammogram is recommended. Based on the Tyrer Cuzick model (a risk assessment model) the patient's lifetime risk is 7.8% and her 10 year risk is 5.8%. According to the ACR, ACS, and NCCN guidelines, an annual breast MRI exam along with mammogram is recommended if the patient's lifetime risk is 20% or greater. This exam was interpreted at Station ID: [id number]. NOTE: For mammograms, a report in lay terms will be sent to the patient. Approximately 15% of breast malignancies will not be visualized mammographically. In the management of a palpable breast mass, a negative mammogram must not discourage biopsy of a clinically suspicious lesion. Electronically Signed By: Rosemary dior/chalino:11/22/2021 15:44:01 letter sent: Normal Exam ACR BI-RADS Category 2: Benign Finding(s) 3342F
== END ==
PROVIDERS: PCP Nurse Practitioner; Referring Provider Nurse Practitioner; Visit Provider Nurse Practitioner
DX: Z12.31 Encounter for screening mammogram for malignant neoplasm of breast; Z13.820 Encounter for screening for osteoporosis; Z78.0 Asymptomatic menopausal state; E21.3 Hyperparathyroidism, unspecified
CPT/HCPCS: 77063; 77067; 77080

== ENCOUNTER → 2022-04-17 10:19 | Outpatient (CLI) | payer MEDICARE, OTHER, SELFPAY ==
[2022-04-17 10:52] LABS: Add Manual Diff / Slide Review NO; Basophils Absolute Auto 0 /uL (0-100); Basophils Percent Auto 0.9 % (0-2); Eosinophils Absolute Auto 200 /uL (0-450); Eosinophils Percent Auto 3.5 % (2-4); Hematocrit 39.6 % (36-46); Hemoglobin 13.3 g/dL (12.0-16.0); Lymphocytes Absolute Auto 1200 /uL (1100-4500); Lymphocytes Percent Auto 22.8 % (25-40); Mean Corpuscular HGB Conc 33.5 % (30-36); Mean Corpuscular Hemoglobin 32.8 PG (26-34); Mean Corpuscular Volume 97.9 fL (80-100); Monocytes Absolute Auto 400 /uL (0-900); Monocytes Percent Auto 8.5 % (3-14); Neutrophils Absolute Auto 3400 /uL (1500-7000); Neutrophils Percent Auto 64.3 % (50-75); Platelet Count 251 X10^3/uL (150-400); Red Blood Cell Count 4.05 X10^6/uL (4.0-5.2); Red Cell Distribution Width 13.7 % (11.6-14.8); White Blood Cell Count 5.2 X10^3/uL (4.5-11.0)
[2022-04-17 11:12] LABS: Creatinine Urine Random 103.2 mg/dL
[2022-04-17 11:17] LABS: Microalbumi Creatinin Ratio Ur 7.7 ug/mg CR (<30); Microalbumin Urine Random 0.8 mg/dL (0-1.6)
[2022-04-17 11:20] LABS: Alanine Aminotransferase 161 IU/L (<35); Albumin 4.6 g/dL (3.5-5.0); Albumin Globulin Ratio 1.4 (1.0-2.8); Alkaline Phosphatase 116 U/L (38-126); Aspartate Aminotransferase 73 IU/L (14-36); BUN Creatinine Ratio 19.5 (6-22); Bilirubin Total 0.6 mg/dL (0.2-1.3); Blood Urea Nitrogen 17 mg/dL (7-17); Calcium 9.4 mg/dL (8.4-10.2); Carbon Dioxide 29 mmol/L (22-32); Chloride 102 mmol/L (98-107); Cholesterol 186 mg/dL (140-199); Estimated Glomerular Filt Rate > 60 mL/min (>60); Globulin 3.4 g/dL (1.7-4.1); Glucose 103 mg/dL (80-110); HDL Cholesterol 60 mg/dL (40-60); HEMOLYSIS < 15 (0-50); LDL Cholesterol Calculated 103 mg/dL (<100); Potassium 4.2 mmol/L (3.4-5.1); Sodium 138 mmol/L (137-145); Triglycerides 117 mg/dL (35-150)
[2022-04-17 11:41] LABS: Hemoglobin A1C% w Est Avg Glu 5.6 % (4.0-6.0)
[2022-04-17 11:44] LABS: Free T3, Triiodothyronine Free 3.47 pg/mL (2.77-5.27); Free T4, Direct Thyroxine 1.14 ng/dL (0.78-2.19)
[2022-04-17 11:57] LABS: Thyroid Stimulating Hormone 1.82 uIU/mL (0.47-4.68)
== END ==
PROVIDERS: PCP Nurse Practitioner; Referring Provider Nurse Practitioner; Visit Provider Nurse Practitioner
DX: E03.9 Hypothyroidism, unspecified (principal); R73.9 Hyperglycemia, unspecified; I10 Essential (primary) hypertension; E78.2 Mixed hyperlipidemia; F32.9 Major depressive disorder, single episode, unspecified; G47.00 Insomnia, unspecified; Z79.899 Other long term (current) drug therapy
CPT/HCPCS: 36415; 80053; 80061; 82043; 82570; 83036; 84439; 84443; 84481; 85025

== ENCOUNTER → 2022-04-18 12:50 | Outpatient (CLI) | payer MEDICARE, OTHER, SELFPAY ==
[2022-04-21 10:17] LABS: Fecal Immunochemical Test Negative (Negative)
== END ==
PROVIDERS: PCP Nurse Practitioner; Referring Provider Nurse Practitioner; Visit Provider Nurse Practitioner
DX: Z12.11 Encounter for screening for malignant neoplasm of colon (principal)
CPT/HCPCS: 82274

== ENCOUNTER → 2022-11-29 12:59 | Outpatient (CLI) | payer MEDICARE, OTHER, SELFPAY ==
--- NOTE | 2022-11-29 | DI.MG.S_ITS ---
BILATERAL DIGITAL SCREENING MAMMOGRAM 3D/2D WITH CAD: 11/29/2022 CLINICAL: Routine screening. Comparison is made to exams dated: 11/22/2021 mammogram, 11/21/2020 mammogram, 09/07/2019 mammogram, and 12/10/2017 mammogram - [facility]. Both breasts are heterogeneously dense, which may obscure small masses (category c / 51-75% glandular tissue). Current study was also evaluated with a Computer Aided Detection (CAD) system. There are benign calcifications in both breasts. No significant masses, calcifications, or other findings are seen in either breast. There has been no significant interval change. IMPRESSION: BENIGN There is no mammographic evidence of malignancy. A 1 year screening mammogram is recommended. Based on the Tyrer Cuzick model (a risk assessment model) the patient's lifetime risk is 7.3% and her 10 year risk is 6.0%. According to the ACR, ACS, and NCCN guidelines, an annual breast MRI exam along with mammogram is recommended if the patient's lifetime risk is 20% or greater. This exam was interpreted at Station ID: [id number]. NOTE: For mammograms, a report in lay terms will be sent to the patient. Approximately 15% of breast malignancies will not be visualized mammographically. In the management of a palpable breast mass, a negative mammogram must not discourage biopsy of a clinically suspicious lesion. Electronically Signed By: Abraham loera/chalino:12/01/2022 15:56:16 letter sent: Normal Exam ACR BI-RADS Category 2: Benign Finding(s) 3342F
== END ==
PROVIDERS: PCP Nurse Practitioner; Referring Provider Nurse Practitioner; Visit Provider Nurse Practitioner
DX: Z12.31 Encounter for screening mammogram for malignant neoplasm of breast (principal)
CPT/HCPCS: 77063; 77067

== ENCOUNTER → 2023-05-01 09:28 | Outpatient (CLI) | payer MEDICARE, OTHER, SELFPAY ==
[2023-05-01 10:53] LABS: Alanine Aminotransferase 233 IU/L (<35); Albumin 4.5 g/dL (3.5-5.0); Albumin Globulin Ratio 1.4 (1.0-2.8); Alkaline Phosphatase 131 U/L (38-126); Aspartate Aminotransferase 167 IU/L (14-36); Bilirubin Total 0.8 mg/dL (0.2-1.3); Blood Urea Nitrogen 17 mg/dL (7-17); Calcium 9.8 mg/dL (8.4-10.2); Carbon Dioxide 28 mmol/L (22-32); Chloride 107 mmol/L (98-107); Cholesterol 200 mg/dL (140-199); Estimated Glomerular Filt Rate > 60 mL/min (>60); Globulin 3.2 g/dL (1.7-4.1); Glucose 106 mg/dL (80-110); HDL Cholesterol 75 mg/dL (40-60); HEMOLYSIS < 15 (0-50); LDL Cholesterol Calculated 102 mg/dL (<100); Potassium 4.6 mmol/L (3.4-5.1); Sodium 137 mmol/L (137-145); Total Protein 7.7 g/dL (6.3-8.2); Triglycerides 116 mg/dL (35-150)
[2023-05-01 11:16] LABS: Free T3, Triiodothyronine Free 3.11 pg/mL (2.77-5.27); Free T4, Direct Thyroxine 1.01 ng/dL (0.78-2.19)
[2023-05-01 11:30] LABS: Thyroid Stimulating Hormone 1.77 uIU/mL (0.47-4.68)
[2023-05-01 12:00] LABS: Creatinine Urine Random 141.8 mg/dL
[2023-05-01 12:04] LABS: Microalbumi Creatinin Ratio Ur 11.2 ug/mg CR (<30); Microalbumin Urine Random 1.6 mg/dL (0-1.6)
== END ==
PROVIDERS: PCP Nurse Practitioner; Referring Provider Nurse Practitioner; Visit Provider Nurse Practitioner
DX: E78.2 Mixed hyperlipidemia (principal); E03.9 Hypothyroidism, unspecified; I10 Essential (primary) hypertension; F32.9 Major depressive disorder, single episode, unspecified; R73.9 Hyperglycemia, unspecified; G47.00 Insomnia, unspecified; Z79.899 Other long term (current) drug therapy
CPT/HCPCS: 36415; 80053; 80061; 82043; 82570; 84439; 84443; 84481

== ENCOUNTER → 2023-05-08 12:56 | Outpatient (CLI) | payer MEDICARE, OTHER, SELFPAY ==
--- NOTE | 2023-05-08 13:30 | DI.CT.S_ITS ---
PROCEDURE: CT ABDOMEN LIVER PROTOCOL INDICATIONS: elevated and worsening LFTs TECHNIQUE: 4 phase scanning was performed. Non-contrast 5 mm axial sections acquired from the diaphragm to the iliac crests. Following the administration of intravenous contrast, 5 mm thick arterial-phase, portal venous-phase, and 5-minute delayed phase images were acquired through the liver. 5 mm thick coronal and sagittal reformats were performed. For radiation dose reduction, the following was used: automated exposure control, adjustment of mA and/or kV according to patient size. COMPARISON: [facility], CT, CT ABDOMEN PELVIS W CON, 11/30/2020, 10:43. FINDINGS: Image quality: Diagnostic Lower chest: Lower lung cysts or emphysematous changes again seen. Scattered scarring and atelectasis. Liver: Small liver cysts in the left lobe as before. Subcentimeter lesions are too small to characterize, probably also cysts. No suspicious hypervascular lesion. Gallbladder and biliary system: Unremarkable, nondilated Pancreas: No ductal dilation Spleen: Nonenlarged Adrenals: No adrenal nodules Kidneys: Scattered cysts. The largest cyst is at the left upper pole measuring up to 7.6 centimeters. No hydronephrosis. Subcentimeter lesions are too small to characterize, usually also cysts. No solid lesion or complicated cystic lesion requiring follow-up. Vessels and lymph nodes: The main portal vein is patent. No abdominal aortic aneurysm or pathologic lymph nodes by size criteria. Bowel and peritoneum: No evidence of small bowel obstruction. No pathologic ascites. Body wall: Small fat containing umbilical hernia Bones: Degenerative changes, no acute or suspicious finding. IMPRESSION: No significant CT abnormality in the liver. Small suspected cysts are present. No biliary ductal dilation Other findings as above. Dictated by: Sebastián Glass M.D. on 05/08/2023 at 14:14 Approved by: Sebastián Glass M.D. on 05/08/2023 at 14:19
== END ==
PROVIDERS: PCP Nurse Practitioner; Referring Provider Nurse Practitioner; Visit Provider Nurse Practitioner
DX: R79.89 Other specified abnormal findings of blood chemistry (principal); J98.11 Atelectasis; J98.4 Other disorders of lung; N28.1 Cyst of kidney, acquired; K42.9 Umbilical hernia without obstruction or gangrene
CPT/HCPCS: 74170; Q9967

== ENCOUNTER → 2023-06-18 14:30 | Outpatient (CLI) | payer MEDICARE, OTHER, SELFPAY | PROVIDERS: PCP Nurse Practitioner; Visit Provider Physician Assistant | DX: S91.109A Unspecified open wound of unspecified toe(s) without damage to nail, initial encounter (principal) | CPT/HCPCS: 87070; 87075; 87077; 87147; 87205 ==

== ENCOUNTER → 2024-02-05 10:56 | Outpatient (CLI) | payer MEDICARE, OTHER, SELFPAY ==
[2024-02-05 11:29] LABS: Add Manual Diff / Slide Review NO; Basophils Absolute Auto 100 /uL (0-100); Eosinophils Absolute Auto 200 /uL (0-450); Eosinophils Percent Auto 3.1 % (2-4); Hemoglobin 13.1 g/dL (12.0-16.0); Lymphocytes Absolute Auto 1400 /uL (1100-4500); Lymphocytes Percent Auto 21.4 % (25-40); Mean Corpuscular HGB Conc 34.5 % (30-36); Mean Corpuscular Hemoglobin 33.3 PG (26-34); Mean Corpuscular Volume 96.6 fL (80-100); Monocytes Absolute Auto 500 /uL (0-900); Monocytes Percent Auto 7.5 % (3-14); Neutrophils Absolute Auto 4400 /uL (1500-7000); Platelet Count 284 X10^3/uL (150-400); Red Blood Cell Count 3.94 X10^6/uL (4.0-5.2); White Blood Cell Count 6.5 X10^3/uL (4.5-11.0)
[2024-02-05 11:44] LABS: Alanine Aminotransferase 21 IU/L (<35); Albumin 4.4 g/dL (3.5-5.0); Albumin Globulin Ratio 1.4 (1.0-2.8); Alkaline Phosphatase 98 U/L (38-126); Aspartate Aminotransferase 25 IU/L (14-36); BUN Creatinine Ratio 17.5 (6-22); Bilirubin Total 0.4 mg/dL (0.2-1.3); Blood Urea Nitrogen 17 mg/dL (7-17); Calcium 9.7 mg/dL (8.4-10.2); Carbon Dioxide 27 mmol/L (22-32); Chloride 105 mmol/L (98-107); Cholesterol 282 mg/dL (140-199); Estimated Glomerular Filt Rate > 60 mL/min (>60); Globulin 3.2 g/dL (1.7-4.1); Glucose 106 mg/dL (80-110); HDL Cholesterol 70 mg/dL (40-60); HEMOLYSIS < 15 (0-50); LDL Cholesterol Calculated 179 mg/dL (<100); Potassium 4.7 mmol/L (3.4-5.1); Sodium 136 mmol/L (137-145); Total Protein 7.6 g/dL (6.3-8.2); Triglycerides 164 mg/dL (35-150)
[2024-02-05 12:15] LABS: Thyroid Stimulating Hormone 2.62 uIU/mL (0.47-4.68)
== END ==
PROVIDERS: PCP Student in an Organized Health Care Education/Training Program; Referring Provider Student in an Organized Health Care Education/Training Program; Visit Provider Student in an Organized Health Care Education/Training Program
DX: R79.89 Other specified abnormal findings of blood chemistry (principal); I10 Essential (primary) hypertension; E78.2 Mixed hyperlipidemia
CPT/HCPCS: 36415; 80053; 80061; 84443; 85025

== ENCOUNTER → 2024-02-05 14:47 | Outpatient (CLI) | payer MEDICARE, OTHER, SELFPAY ==
--- NOTE | 2024-02-05 14:48 | DI.MG.S_ITS ---
BILATERAL DIGITAL SCREENING MAMMOGRAM 3D/2D WITH CAD: 02/05/2024 CLINICAL: Routine screening. Comparison is made to exams dated: 11/29/2022 mammogram, 11/22/2021 mammogram, and 11/21/2020 mammogram - [facility]. The breasts are heterogeneously dense, which may obscure small masses (category c / 51-75% glandular tissue). Current study was also evaluated with a Computer Aided Detection (CAD) system. There are benign calcifications in both breasts. No significant masses, calcifications, or other findings are seen in either breast. There has been no significant interval change. IMPRESSION: BENIGN There is no mammographic evidence of malignancy. A 1 year screening mammogram is recommended. Based on the Tyrer Cuzick model (a risk assessment model) the patient's lifetime risk is 6.8% and her 10 year risk is 6.2%. According to the ACR, ACS, and NCCN guidelines, an annual breast MRI exam along with mammogram is recommended if the patient's lifetime risk is 20% or greater. This exam was interpreted at Station ID: [id number]. NOTE: For mammograms, a report in lay terms will be sent to the patient. Approximately 15% of breast malignancies will not be visualized mammographically. In the management of a palpable breast mass, a negative mammogram must not discourage biopsy of a clinically suspicious lesion. Electronically Signed By: Brionna Curiel M.D., Ph.D. mabel/chalino:02/08/2024 05:06:49 letter sent: Normal Exam ACR BI-RADS Category 2: Benign
== END ==
PROVIDERS: PCP Nurse Practitioner; Referring Provider Nurse Practitioner; Visit Provider Nurse Practitioner
DX: Z12.31 Encounter for screening mammogram for malignant neoplasm of breast (principal); R92.333 Mammographic heterogeneous density, bilateral breasts
CPT/HCPCS: 77063; 77067